=== PATIENT | male | born 1975 | race African-American/Black ===

== ENCOUNTER 2024-04-19 05:16 | Outpatient (CLI) | payer BC, SELFPAY ==
--- OUTSIDE RECORDS SUMMARY | 2024-04-20 03:31 | XMS_ITS | Continuity of Care Document ---
Author Name [facility] Organization [facility] Care Team Providers Care Online Services Manager Name Role Phone [facility] Unavailable Unavailable Problems Combined list of problems from Department of [place] and Veterans Affairs facilities. It does not include entries that were removed or entered in error. Problem Status Onset Date Problem Type Date of Resolution Comments Source Allergic rhinitis Active Condition [facility] Benign essential hypertension (SNOMED CT 6555521) Active Condition [facility] Benign prostatic hyperplasia Active Condition [facility] Carpal Tunnel Syndrome Active Condition [facility] Fitting and Adjustment of Orthopedic Devices Active Condition [facility] Hand pain (SNOMED CT 10140251) Active Condition [facility] Hyperlipidemia (SNOMED CT 28855151) Active Condition [facility] Paresthesia Active Condition [facility] no psychiatric diagnosis or condition on axis I Active Condition [facility] conditions influencing health status Active Condition DoD refractive error - myopia Active Condition DoD dermatophytosis nails Active Condition DoD dermatitis Active Condition DoD Macules And Papules Active Condition Do D obesity Active Condition DoD chronic sinusitis Active Condition DoD upper back pain Active Condition 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 Also recommend activity modifications, [...] Known Allergies Drug allergy (disorder) active 05/13/2008 [facility] [place] Immunizations Combined list of available immunizations from the Department of Defense and Veterans Affairs facilities. Immunization Series Date Given Administered By Site Reaction Lot Number CVX Code Drug Technical Program Manager Status Comments Source COVID-19 ([employer] MRNA, LNP-S, PF, 30 MCG/0.3 ML DOSE 3 2020 208 complet ed PFR; [id number]; 2 [facility] COVID-19 ([employer]), MRNA, LNP-S, PF, 30 MCG/0.3 ML DOSE 2 2020 208 complet ed [facility] COVID-19 (PFIZER), MRNA, LNP-S, PF, 30 MCG/0.3 ML DOSE 1 2020 208 complet ed [facility] TDAP 2010 115 complet ed [facility] influenza virus vaccine, live, attenuated, for intranasal use 1 2007 CANDACE ALLEN [id number] Other (OTH) complet ed influenza virus vaccine, live, attenuate d, for intranasa l use DoD influenza virus vaccine, live, attenuated, for intranasal use 1 2007 CANDACE ALLEN [id number] 111 Other (OTH) complet ed influenza virus vaccine, live, attenuate d, for intranasa l use DoD influenza virus vaccine, live, attenuated, for intranasal use 1 2006 [id number] 111 Unknown (UNK) comple t ed influenza [...] purified surface antigen)-reti red CODE 1 2005 [id number] Unknown (UNK) comple t ed influenza virus vaccine, split virus (incl. purified surface antigen)- retired CODE DoD hepatitis A and hepatitis B vaccine 2 2005 UNK 104 Unknown (UNK) comple t ed hepatitis A and hepatitis B vaccine DoD tuberculin skin test; purified protein derivative solution, intradermal 1 2005 Unknown, Provider [id number] Italo (PD) complet ed tuberculi n [...] ADM Date DC Date Status Disposition Source Counts include 234 beds at the [facility] Primary Care) OUTPATIENT [id number] ELIF Roland 01/24 Released w/o Limitations [facility] Primary Care) Counts include 234 beds at the [facility] Primary Care) OUTPATIENT [id number] OMA Reyes 01/31 Released w/o Limitations [facility] Primary Care) Counts include 234 beds at the [facility] Physical Therapy) OUTPATIENT [id number] SPEC$-F OR BACK DARLING SHI 07/18 Released with Work/Duty Limitations [facility] Phys[facility] l Therapy ) [facility] Physical Therapy) OUTPATIENT [id number] XAVI DUFF 07/20 Released with Work/Duty Limitations [facility] Physica [facility] Therapy ) [facility] Physical Therapy) OUTPATIENT [id number] XAVI DUFF 07/23 Released with Work/Duty Limitations [facility] Physica [facility] Therapy ) [facility] Physical Therapy) OUTPATIENT [id number] XAVI DUFF 07/24 Released with Work/Duty Limitations [facility] Physica l Therapy ) [facility] Physical Therapy) OUTPATIENT [id number] XAVI DUFF 07/25 Released with Work/Duty Limitations [facility] Physica l Therapy ) [facility] Primary Care[facility] OUTPATIENT [id number] walk-in LINA MARTEL 07/25 Released w/o Limitations [facility] Primary Care) [facility] Physical Therapy) OUTPATIENT [id number] DARLING WISDOM 11/09 Released with Work/Duty Limitations [facility] Physica l Therapy ) [facility](1AD FA BAS (MIRS)) OUTPATIENT [id number] back pain/HT N follow up SCOTT HUYNH 01/08 Released w/o Limitations [facility](D FA BAS (MIRS)) [facility] Physical Medicine) OUTPATIENT [id number] midback pain ANGELICA NUNEZ 01/28 Released w/o Limitations [facility](L Physica l Medicin e) [facility](D FA BAS (MIRS)) OUTPATIENT [id number] HTN SCOTT HUYNH 01/30 Released w/o Limitations [facility](D FA BAS (MIRS)) [facility] Physical Medicine) OUTPATIENT [id number] RIGHT THORACI C PARASPI NOUS PAIN WITH SPASMS ANGELICA NUNEZ 03/06 Released w/o Limitations [facility](L Physica l Medicin e) [facility] Physical Therapy) OUTPATIENT [id number] ACUT-BA DARLING SCHWARZ 03/25 Released with Work/Duty Limitations [facility] Physica l Therapy ) [facility] Physical Therapy) OUTPATIENT [id number] PROC MARIYA SHULTZ 04/02 Released w/o Limitations [facility] Physica l Therapy ) [facility] Primary Care) OUTPATIENT [id number] f/u from PT per CPT LINA Love 04/29 Released w/o Limitations [facility] Primary Care) [facility] Physical Medicine) OUTPATIENT [id number] F/U ANGELICA NUNEZ 05/20 Released w/o Limitations [facility](LSL Physica l Medicin e) [facility] Physical Medicine) OUTPATIENT [id number] BOTOX INJ ANGELICA NUNEZ 06/05 Released w/o Limitations [facility](LSL Physica l Medicin e) [facility](1AD FA BAS (MIRS)) OUTPATIENT [id number] BP SCOTT Coyne 06/19 Released w/o Limitations [facility](1AD FA BAS (MIRS)) [facility](L Cardiolog y) OUTPATIENT [id number] INOCENCIOT-LORELEI RIDLEY 07/04 Released w/o Limitations [facility](L Cardiol ogy) [facility] Primary Care) OUTPATIENT [id number] f/u back pain SHRADDHA PINON F 07/19 Released w/o Limitations [facility] Primary Care) [facility] Hearing Conservat ion) OUTPATIENT [id number] annual hearing test YARA MIRANDA 07/23 Released w/o Limitations [facility](R Hearing Conserv ation) [facility] R Physical Exam) OUTPATIENT [id number] Part 1 Exam YARA MIRANDA 07/23 Released w/o Limitations [facility](ZZZ BHR Physica l Exam) [facility] Optometry ) OUTPATIENT [id number] MEB Physica l CARLA URIOSTEGUI 07/23 Released w/o Limitations [facility] Optomet ry) [facility] Primary Care) OUTPATIENT [id number] SHRADDHA Pablo 08/05 Released w/o Limitations [facility] Primary Care) [facility] R Physical Exam) OUTPATIENT [id number] f/u on prev meb exam w/lab & cxr results YARA MIRANDA 08/22 Released w/o Limitations [facility](ZZZ BHR Physica l Exam) [facility] Physical Exam) TELE CONSULT [id number] called about MEB process FAWAD SHRESTHA 08/27 [facility](ZZZ LSL Physica l Exam) [facility] R Physical Exam) OUTPATIENT [id number] f/u on prev exam w/lab & cxr results YARA MIRANDA 09/11 Released w/o Limitations [facility](ZZZ BHR Physica l Exam) [facility] Physical Therapy) OUTPATIENT [id number] DIANE KO 09/16 Released w/o Limitations [facility] Physica l Therapy ) [facility] Psycholog y Service) OUTPATIENT [id number] Wt 2 Stay JUNAID HARVEY 09/16 Released w/o Limitations [facility] Psychol ogy Service ) [facility](L Nutrition Care) OUTPATIENT [id number] GERMAINE KERR 09/16 Released w/o Limitations [facility] Nutriti on Care) [facility] Wellness Center) OUTPATIENT [id number] Metabol ic Testing REI BOWSER 09/25 Released w/o Limitations [facility]) [facility] Physical Exam) TELE CONSULT [id number] chart reveiw FAWAD SHRESTHA 10/08 [facility](ZZZ LSL Physica l Exam) [facility] Physical Therapy) OUTPATIENT [id number] SPEC-RA NGE OF MOTION DARLING SHI 10/09 Released with Work/Duty Limitations [facility] Physica l Therapy ) [facility] Physical Exam) OUTPATIENT [id number] MATTIE OLIVA 10/28 Released with Work/Duty Limitations [facility](ZZZ LSL Physica l Exam) [facility] Urology) OUTPATIENT [id number] rt testicu lar pain; hx of torsion & orchipe xy; hydroce DORI Galicia 10/29 Released w/o Limitations [facility] Urology ) [facility] Physical Therapy) OUTPATIENT [id number] CHRONIC PAIN GAVI SARABIA 11/05 Released w/o Limitations [facility](L Physica l Therapy ) [facility] Physical Exam) TELE CONSULT [id number] Psych appt. schedul ed LISA VILLASEÑOR M 11/20 [facility](ZZZ LSL Physica l Exam) [facility] Primary Care) OUTPATIENT [id number] WTun Intake CARLA HART 12/03 Released w/o Limitations [facility] Primary Care) [facility] Primary Care) OUTPATIENT [id number] initial wtu RADHA CLINTON L 12/04 Released w/o Limitations [facility] Primary Care) [facility] Primary Care) OUTPATIENT [id number] [facility] RADHA L 12/17 Released w/o Limitations [facility] Primary Care) [facility] Primary Care) OUTPATIENT [id number] LORELEI HUSSEIN 12/19 Released with Work/Duty Limitations [facility] Primary Care) [facility] Primary Care) OUTPATIENT [id number] [facility] RADHA L 01/05 Released w/o Limitations [facility] Primary Care) [facility] Primary Care) OUTPATIENT [id number] [facility] 01/19 Released w/o Limitations [facility] Primary Care) [facility](L Neurosurg [place]) OUTPATIENT [id number] INTERVE RTEBRAL DISC DEGENER ATSCOTT KNAPP 01/28 Released w/o Limitations [facility](LSL Neurosu rgery) [facility] Primary Care) OUTPATIENT [id number] [facility] L 02/04 Released w/o Limitations [facility] Primary Care) [facility] Primary Care) OUTPATIENT [id number] [facility] L 02/17 Released w/o Limitations [facility] Primary Care) [facility] Primary Care) OUTPATIENT [id number] [facility] f/u [facility] L 03/02 Released w/o Limitations [facility] Primary Care) [facility] Primary Care) OUTPATIENT [id number] [facility] TEX IRWIN 03/16 Released w/o Limitations [facility] Primary Care) [facility] L Physical Exam) TELE CONSULT [id number] LISA VILLASEÑOR 03/23 [facility](ZZZ LSL Physica l Exam) [facility] Physical Therapy) OUTPATIENT [id number] CODY COREAS 03/30 Released w/o Limitations [facility](R Physica l Therapy ) [facility] Primary Care) OUTPATIENT [id number] wilson/RAHEL Joshi 04/03 Released w/o Limitations [facility] Primary Care) [facility] Physical Therapy) OUTPATIENT [id number] CODY COREAS 04/06 Released w/o Limitations [facility](R Physica l Therapy ) [facility] Rheumatol [facility]gy) OUTPATIENT [id number] myalgia s KATIUSKA PRATHER 04/07 Released w/o Limitations [facility](L Rheumat ology) [facility] Physical Therapy) OUTPATIENT [id number] CODY COREAS 04/08 Released w/o Limitations [facility](R Physica l Therapy ) [facility] Physical Medicine) OUTPATIENT [id number] follow up ANGELICA NUNEZ 04/15 Released w/o Limitations [facility](L Physica l Medicin e) [facility] Physical Therapy) OUTPATIENT [id number] CODY COREAS 04/16 Released w/o Limitations [facility](R Physica l Therapy ) [facility]) OUTPATIENT [id number] health assessm ent CODY COREAS 04/21 Released w/o Limitations [facility](R Physica l Therapy ) [facility] Therapy) OUTPATIENT [id number] CODY COREAS 04/24 Released w/o Limitations [facility] Physica l Therapy ) [facility] Physical Exam) OUTPATIENT [id number] RECEIVE COPY OF MELETY MYRICK 04/25 Released w/o Limitations [facility] LSL Physica l Exam) [facility](R Physical Therapy) OUTPATIENT [id number] SHILO MCGINNIS 04/27 Released with Work/Duty Limitations [facility](R Physica l Therapy ) [facility] Primary Care) TELE CONSULT [id number] needs follow up appoint CEDRIC Cohen 04/27 [facility] Primary Care) [facility] Primary Care) OUTPATIENT [id number] wtu/MELINA Arrieta 04/28 Released w/o Limitations [facility] Primary Care) [facility] Physical Medicine) OUTPATIENT [id number] acupunc ANGELICA Vargas 04/29 Released w/o Limitations [facility](L Physica l Medicin e) [facility] Physical Therapy) OUTPATIENT [id number] SHILO MCGINNIS 05/01 Released with Work/Duty Limitations [facility] Physica l Therapy ) [facility] Physical Therapy) OUTPATIENT [id number] SHILO MCGINNIS 05/04 Released with Work/Duty Limitations [facility] Physica l Therapy ) [facility] Physical Therapy) OUTPATIENT [id number] SHILO MCGINNIS 05/05 Released with Work/Duty Limitations [facility] Physica l Therapy ) [facility](L Neurology ) OUTPATIENT [id number] testing CARITO ANTONIO 05/07 Released w/o Limitations [facility] Neurolo gy) [facility] Physical Therapy) OUTPATIENT [id number] SHILO MCGINNIS 05/07 Released with Work/Duty Limitations [facility](R Physica l Therapy ) [facility](L Neurology ) OUTPATIENT [id number] SevereN europat hic MFPS/fr om baumhol citlalli CARITO ANTONIO 05/08 Released w/o Limitations [facility] Neurolo gy) [facility] Primary Care) OUTPATIENT [id number] wtu f/u RADHA CLINTON 05/13 Released w/o Limitations [facility] Primary Care) [facility] Primary Care) OUTPATIENT [id number] NCM VISIT HAILEY CARLA M 05/27 Released with Work/Duty Limitations [facility] Primary Care) [facility] Primary Care) OUTPATIENT [id number] wtu/fu MELINA VALERIO 06/05 Released w/o Limitations [facility] Primary Care) [facility] Primary Care) OUTPATIENT [id number] LORELEI Momin 06/05 Released w/o Limitations [facility] Primary Care) [facility](L Neurology ) OUTPATIENT [id number] FOLLOW UP SEB GARCIA 06/10 Released w/o Limitations [facility] Neurolo gy) [facility] Primary Care) OUTPATIENT [id number] WTU NCM HAILEY CARLA M 06/12 Released with Work/Duty Limitations [facility] Primary Care) [facility] Neurology ) OUTPATIENT [id number] CARITO ANTONIO 06/17 Released w/o Limitations [facility]SL Neurolo gy) [facility] Primary Care) OUTPATIENT [id number] wtu f/u MELINA VALERIO 06/22 Released w/o Limitations [facility] Primary Care) [facility] Physical Therapy) OUTPATIENT [id number] JOHANNA MACDONALD 06/22 Released w/o Limitations [facility](R Physica l Therapy ) [facility] Physical Exam) OUTPATIENT [id number] RIB Physica l MATTIE OLIVA 07/02 Released with Work/Duty Limitations [facility] Physica l Exam) [facility] Primary Care) OUTPATIENT [id number] weekly WTU CARLA HART 07/09 Released with Work/Duty Limitations [facility] Primary Care) [facility] Primary Care) OUTPATIENT [id number] wtu MELINA VALERIO 07/10 Released w/o Limitations [facility] Primary Care) [facility] Primary Care) OUTPATIENT [id number] wtMELINA Garay 07/24 Released w/o Limitations [facility] Primary Care) [facility](L Dermatolo gy) OUTPATIENT [id number] Macules And Papules [id number] WILNER BENJAMIN 07/30 Released w/o Limitations [facility](L Dermato logy) [facility] Physical Medicine) OUTPATIENT [id number] FOLLOW UP ANGELICA NUNEZ 08/07 Released w/o Limitations [facility](L Physica l Medicin e) [facility] Primary Care) OUTPATIENT [id number] wtu/RADHA Hernandez 08/26 Released w/o Limitations [facility] Primary Care) [facility] Hearing Conservat ion) OUTPATIENT [id number] annual hearing test YARA MIRANDA 09/01 Released w/o Limitations [facility] Hearing Conserv ation) [facility] Primary Care) OUTPATIENT [id number] WTU KENNY Benjamin 09/03 Released w/o Limitations [facility] Primary Care) [facility] Primary Care) OUTPATIENT [id number] NAI Becker 09/09 Released w/o Limitations [facility] Primary Care) [facility] Physical Therapy) OUTPATIENT [id number] ZIA HARDING 09/11 Released w/o Limitations [facility] Physica l Therapy ) [facility] Primary Care) OUTPATIENT [id number] wtu MELINA VALERIO 09/11 Released w/o Limitations [facility] Primary Care) [facility] Physical Therapy) OUTPATIENT [id number] ZIA HARDING 09/14 Released w/o Limitations [facility] Physica l Therapy ) [facility] Optometry ) OUTPATIENT [id number] eye exam SCOTT CLAIRE 09/21 Released w/o Limitations [facility] Optomet ry) [facility] Primary Care) OUTPATIENT [id number] wtu/MELINA Arrieta 09/25 Released w/o Limitations [facility] Primary Care) [facility] Primary Care) OUTPATIENT [id number] WTU Followu p ALFREDO, KENNY JADEN 09/25 Released w/o Limitations [facility] Primary Care) [facility] Primary Care) OUTPATIENT [id number] WTU Followu p KENNY FUENTES 09/28 Released w/o Limitations [facility] Primary Care) [facility] Primary Care) OUTPATIENT [id number] WTU Followu p KENNY FUENTES 10/06 Released w/o Limitations [facility] Primary Care) [facility] Primary Care) OUTPATIENT [id number] wtu/MELINA Arrieta 10/07 Released w/o Limitations [facility] Primary Care) [facility] Dermatolo gy) OUTPATIENT [id number] f/u fungus [id number] WILNER BENJAMIN 10/12 Released w/o Limitations [facility] Dermato logy) [facility] Primary Care) OUTPATIENT [id number] WTU Followu p KENNY FUENTES 10/15 Released w/o Limitations [facility] Primary Care) [facility] Primary Care) OUTPATIENT [id number] wtu/f/u MELINA VALERIO 10/21 Released w/o Limitations [facility] Primary Care) [facility] Primary Care) OUTPATIENT [id number] WTU Followu p KENNY FUENTES JADEN 10/21 Released w/o Limitations [facility] Primary Care) [facility] Nutrition Care) OUTPATIENT [id number] overwei ght/obe PEPPER Galicia 10/26 Released w/o Limitations [facility] Nutriti on Care) [facility] Primary Care) OUTPATIENT [id number] WTU Followu p KENNY FUENTES JADEN 11/05 Released w/o Limitations [facility] Primary Care) [facility] Primary Care) OUTPATIENT [id number] [facility] f/u PAULY BUSTILLOS ZEINAB 11/11 Released w/o Limitations [facility] Primary Care) [facility] Primary Care) OUTPATIENT [id number] [facility] MELINA VALERIO 11/13 Released w/o Limitations [facility] Primary Care) [facility] Primary Care) OUTPATIENT [id number] [facility] f/u PAULY BUSTILLOS ZEINAB 11/16 Released w/o Limitations [facility] Primary Care[facility] Primary Care) OUTPATIENT [id number] [facility] Followu p KENNY FUNETES JADEN 11/24 Released w/o Limitations [facility] Primary Care) [facility] OUTPATIENT [id number] 1 PT ROM XAVIER RUSH 11/25 Released w/o Limitations [facility] OUTPATIENT [id number] [facility] MITCHELL GIBSON 11/25 Released w/o Limitations [facility] Outpatient Encounter [id number] NEFTALI VANESSA 04/15 [facility]RLOS [facility] Outpatient Encounter [id number] 04/15 TRUPTI HWANG [facility] Procedures Combined list of: 1) Procedures from Department of Veterans Affairs facilities going back up to thelast 18 months, not all [place] non-surgical procedures are included; 2) All procedures from the Department of Defense facilities. Procedure Procedure Type Code Date Perfomer Comments Sourc e Clinical Social Work Individual Outpatient Counseling 30 Minutes Clinical Social Work Individual Outpatient Counseling 30 Minutes [id number] 2008 JENIFER PARIKH [facility] Range Of Motion Evaluation Of Extremity Range Of Motion Evaluation Of Extremity 46861 2008 XAVIER RUSH [facility] Coordinated care fee, maintenance rate 2008 KENNY FUENTES Coordinated care fee, maintenance rate 2008 PAULY BUSTILLOS [facility] Coordinated care fee, maintenance rate 2008 PAULY BUSTILLOS ZEINAB [facility] Coordinated care fee, maintenance rate 2008 KENNY FUENTES Medical Nutrition Therapy Group (2 or More Individuals) Each 30 Minutes Medical Nutrition Therapy Group (2 or More Individuals) Each 30 Minutes [address] [facility] Coordinated care fee, maintenance rate 2008 KENNY FUENTES Coordinated care fee, maintenance rate 2008 KENNY FUENTES Spectacles Services Fitting Monofocal Except For Aphakia Spectacles Services Fitting Monofocal Except For Aphakia 36107 2008 SCOTT CLAIRE Visual Larkin Test Limited Examination Visual Larkin Test Limited Examination 85717 2008 SCOTT CLAIRE Determination Of Refractive State Determination Of Refractive State 36717 2008 SCOTT CLAIRE Ophthalmological New Patient Start Comprehensive Care Ophthalmological New Patient Start Comprehensive Care 22053 2008 SCOTT CLAIRE Range Of Motion Evaluation Of Extremity Range Of Motion Evaluation Of Extremity 40476 2008 ZIA HARDING measured T-L spine and bilateral shoulders [facility] Range Of Motion Evaluation Of Extremity Range Of Motion Evaluation Of Extremity 21430 2008 ZIA HARDING [facility] Threshold Audiogram (Pure Tone) Threshold Audiogram (Pure Tone) 65714 2008 YARA MIRANDA [facility] Clinical Social Work Counseling Group Clinical Social Work Counseling Group 16932 2008 JENIFER PARIKH [facility] Skin Lesion DAIN Prep Skin Lesion DAIN Prep 05399 2007 WILNER BENJAMIN neg [facility] Toenail DAIN Prep Toenail DAIN Prep 83220 2007 WILNER BENJAMIN pos [facility] Physical Therapy Service Re-Evaluation Physical Therapy Service Re-Evaluation 96429 2007 JOHANNA MACDONALD [facility] Phys Therapy Education Self Care Training - Per 15 Minutes Phys Therapy Education Self Care Training - Per 15 Minutes 53889 2007 JOHANNA MACDONALD [facility] Psychometric Neuropsych Testing Battery Admin By Physician Psychometric Neuropsych Testing Battery Admin By Physician 45569 2007 CARITO ANTONIO [facility] Psychiatric Diagnostic Evaluation Review of Records and Reports Psychiatric Diagnostic Evaluation Review of Records and Reports 29100 2007 CARITO ANTONIO Psychometric Neuropsych Testing Battery Admin By Physician Psychometric Neuropsych Testing Battery Admin By Physician 65761 2007 CARITO ANTONIO [facility] Physical Medicine - Group Physical Therapy Se ion Physical Medicine - Group Physical Therapy Session 09551 2007 SHILO MCGINNIS Pnt is being discharged from aquatic therapy due to a fear of water that inhibits his ability to perform exercises in the water. [facility] Psychologic Testing And Report Administered By Physician Psychologic Testing And Report Administered By Physician 59486 2007 CARITO ANTONIO Psychometric Neuropsych Testing Battery Admin By Physician Psychometric Neuropsych Testing Battery Admin By Physician 63921 2007 CARITO ANTONIO [facility] Psychiatric Diagnostic Evaluation Comprehensive Examination Psychiatric Diagnostic Evaluation Comprehensive Examination 06348 2007 CARITO ANTONIO [facility] Physical Therapy: ___ Se ion Segments, 15 Minutes Each Physical Therapy: ___ Session Segments, 15 Minutes Each 61250 2007 SHILO MCGINNIS [facility] Modalities Heat Hot Packs Modalities Heat Hot Packs 00467 2007 SHILO MCGINNIS [facility] Physical Therapy: ___ Se ion Segments, 15 Minutes Each Physical Therapy: ___ Session Segments, 15 Minutes Each 18545 2007 SHILO MCGINNIS [facility] Modalities Heat Hot Packs Modalities Heat Hot Packs 16242 2007 SHILO MCGINNIS [facility] Physical Therapy: ___ Se ion Segments, 15 Minutes Each Physical Therapy: ___ Session Segments, 15 Minutes Each 92307 2007 SHILO MCGINNIS [facility] Modalities Heat Hot Packs Modalities Heat Hot Packs 32084 2007 SHILO MCGINNIS [facility] Injection Of Trigger Point(s) One Or Two Muscle Group(s) Injection Of Trigger Point(s) One Or Two Muscle Group(s) 77857 2007 ANGELICA NUNEZ Botox 300 units into The R rhomboids and trapezius/lev ator scapulae/sple nius cervicus. [facility] Physical Therapy: ___ Se ion Segments, 15 Minutes Each Physical Therapy: ___ Session Segments, 15 Minutes Each 90995 2007 SHILO MCGINNIS [facility] Modalities Heat Hot Packs Modalities Heat Hot Packs 52773 2007 SHILO MCGINNIS [facility] Modalities Heat Hot Packs Modalities Heat Hot Packs 60148 2007 CODY COREAS [facility] Physical Therapy: ___ Se ion Segments, 15 Minutes Each Physical Therapy: ___ Session Segments, 15 Minutes Each 03639 2007 CODY COREAS Ther ex x 35 mins [facility] Modalities Heat Hot Packs Modalities Heat Hot Packs 66465 2007 CODY COREAS [facility] Physical Therapy: ___ Se ion Segments, 15 Minutes Each Physical Therapy: ___ Session Segments, 15 Minutes Each 36905 2007 CODY COREAS therex x 25 mins [facility] Patient Training And Self-Care Skills Patient Training And Self-Care Skills 22621 2007 CODY COREAS [facility] Physical Therapy Service Re-Evaluation Physical Therapy Service Re-Evaluation 61920 2007 CODY COREAS [facility] Acupunct One Or More Wilson W/O Stimulation Initial 15 Min Acupunct One Or More Wilson W/O Stimulation Initial 15 Min 55073 2007 ANGELICA NUNEZ [facility] Acupunct One/More Wilson W/O Stim Each Addl 15 Min W/ Reinsert Needle(s) Acupunct One/More Wilson W/O Stim Each Addl 15 Min W/ Reinsert Needle(s) 36258 2007 ANGELICA NUNEZ Written consent was obtained [...] [Jim Field Acupuncture Points]: Cingulate Gyrus, Thalamic, Cheshire 2, Point Zero, and Patten Men were detected using the POINTER PLUS detector. These points were then stimulated using low current/frequ ency electrical signal for 30 seconds each. Then, small Gold ASP acupuncture needles were placed in the B Ears in these Jim Field acupuncture points. [facility] Physical Therapy Neuromuscular Re-education Physical Therapy Neuromuscular Re-education 49752 2007 CODY COREAS [facility] Physical Therapy: ___ Se ion Segments, 15 Minutes Each Physical Therapy: ___ Session Segments, 15 Minutes Each 06110 2007 CODY COREAS [facility] Physical Therapy Neuromuscular Re-education Physical Therapy Neuromuscular Re-education 03304 2007 CODY COREAS [facility] Physical Therapy: ___ Se ion Segments, 15 Minutes Each Physical Therapy: ___ Session Segments, 15 Minutes Each 57833 2007 CODY COREAS [facility] Physical Therapy Neuromuscular Re-education Physical Therapy Neuromuscular Re-education 42909 2007 CODY COREAS NMRx25 mins [facility] Physical Therapy: ___ Se ion Segments, 15 Minutes Each Physical Therapy: ___ Session Segments, 15 Minutes Each 05934 2007 CODY COREAS [facility] Physical Therapy Service Evaluation Physical Therapy Service Evaluation 44344 2007 CODY COREAS [facility] Health And Behav A e mt Each 15 Min Initial A e ment Health And Behav Assessmt Each 15 Min Initial Assessment 01957 2007 JENIFER PARIKH [facility] Psychiatric Diagnostic Evaluation Comprehensive Examination Psychiatric Diagnostic Evaluation Comprehensive Examination 93776 2007 DAVID BARRON [facility] Range Of Motion Evaluation Of Extremity Range Of Motion Evaluation Of Extremity 65924 2007 DARLING SHI [facility] Medical Nutrition Therapy Group (2 or More Individuals) Each 30 Minutes Medical Nutrition Therapy Group (2 or More Individuals) Each 30 Minutes 80602 2007 GERMAINE KERR [facility] Psychotherapy Group Interactive Psychotherapy Group Interactive 16401 2007 JUNAID HARVEY [facility] Physician Supervised Services Provision Of Educational Supplies Physician Supervised Services Provision Of Educational Supplies 29196 2007 DIANE KO Physician Supervised Group Educational Services 2007 DIANE KO Extensive Color Vision Testing Extensive Color Vision Testing 18331 2006 JUNAID VILLASENOR [facility] Visual Function Screening Visual Function Screening 34987 2006 JUNAID VILLASENOR [facility] Threshold Audiogram (Pure Tone) Threshold Audiogram (Pure Tone) 85420 2006 YARA MIRANDA [facility] Cardiac Stre Test With Physician Supervision, Interpretation, And Report Cardiac Stress Test With Physician Supervision, Interpretation, And Report 40501 2006 LORELEI MARSHALL [facility] Nerve Ablation Cervical Spine 2006 ANGELICA NUNEZ [facility] Injection Of Trigger Point(s) One Or Two Muscle Group(s) Injection Of Trigger Point(s) One Or Two Muscle Group(s) 98329 2006 ANGELICA NUNEZ 125 units BOTOX R rhomboid, 75 units R trap. [facility] Modalities Cryotherapy Cold Packs Modalities Cryotherapy Cold Packs 12120 2006 MARIYA SHULTZ [facility] Physical Therapy: ___ Se ion Segments, 15 Minutes Each Physical Therapy: ___ Session Segments, 15 Minutes Each 64804 2006 MARIYA SHULTZ [facility] A isted Exercises For ROM Assisted Exercises For ROM 55045 2006 DARLING SHI Mobilization Soft Ti ue Mobilization Sof t Tissue 72343 2006 DARLING SHI [facility] Physical Therapy Service Re-Evaluation Physical Therapy Service Re-Evaluation 54043 2006 DARLING SHI Injection Of Trigger Point(s) One Or Two Muscle Group(s) Injection Of Trigger Point(s) One Or Two Muscle Group(s) 73006 2006 ANGELICA NUNEZ BOTOX 150 units R rhomboids, 50 units R trapezius Maryann Osteopathic Manip Treatment (OMT) 1-2 Body Regions Involved Osteopathic Manip Treatment (OMT) 1-2 Body Regions Involved 50213 2006 ANGELICA NUNEZ [facility] Physical Therapy Service Re-Evaluation Physical Therapy Service Re-Evaluation 30051 2006 DARLING SHI [facility] Physical Therapy: ___ Se ion Segments, 15 Minutes Each Physical Therapy: ___ Session Segments, 15 Minutes Each 13602 2005 XAVI HARRINGTON [facility] Modalities Electrical Stimulation Modalities Electrical Stimulation 80122 2005 XAVI HARRINGTON [facility] Physical Therapy Mobilization Joint Physical Therapy Mobilization Joint 05431 2005 XAVI HARRINGTON [facility] Modalities Heat Hot Packs Modalities Heat Hot Packs 34172 2005 XAVI HARRINGTON [facility] Physical Therapy: ___ Se ion Segments, 15 Minutes Each Physical Therapy: ___ Session Segments, 15 Minutes Each 40781 2005 XAVI HARRINGTON [facility] Modalities Electrical Stimulation Modalities Electrical Stimulation 91709 2005 XAVI HARRINGTON [facility] Physical Therapy Mobilization Joint Physical Therapy Mobilization Joint 32945 2005 XVAI HARRINGTON [facility] Modalities Heat Hot Packs Modalities Heat Hot Packs 76471 2005 XAVI HARRINGTON [facility] Modalities Electrical Stimulation Modalities Electrical Stimulation 38505 2005 XAVI HARRINGTON [facility] Physical Therapy: ___ Se ion Segments, 15 Minutes Each Physical Therapy: ___ Session Segments, 15 Minutes Each 77043 2005 XAVI HARRINGTON [facility] Physical Therapy Mobilization Joint Physical Therapy Mobilization Joint 41976 2005 XAVI HARRINGTON [facility] Modalities Heat Hot Packs Modalities Heat Hot Packs 81008 2005 XAVI HARRINGTON [facility] Physical Therapy: ___ Se ion Segments, 15 Minutes Each Physical Therapy: ___ Session Segments, 15 Minutes Each 04231 2005 XAVI HARRINGTON [facility] Modalities Electrical Stimulation Modalities Electrical Stimulation 83922 2005 XAVI HARRINGTON [facility] Modalities Heat Hot Packs Modalities Heat Hot Packs 75219 2005 XAVI HARRINGTON [facility] Physical Therapy: ___ Se ion Segments, 15 Minutes Each Physical Therapy: ___ Session Segments, 15 Minutes Each 60161 2005 DARLING SHI [facility] Install Peripheral Transcutaneous Neurostimulator Install Peripheral Transcutaneous Neurostimulator 37429 2005 DARLING SHI [facility] Modalities Heat Hot Packs Modalities Heat Hot Packs 52025 2005 DARLING SHI [facility] Physical Therapy Mobilization Joint Physical Therapy Mobilization Joint 83387 2005 DARLING SHI [facility] Physical Therapy Service Evaluation Physical Therapy Service Evaluation 88522 2005 DARLING SHI [facility] Typhoid Vaccine Vi Capsular Polysaccharide, For Intramus Use Typhoid Vaccine Vi Capsular Polysaccharide, For Intramus Use 18321 2005 ELIF RINCON [facility] Immunization Administration By Injection, One Vaccine Immunization Administration By Injection, One Vaccine 48695 2005 ELIF RINCON [facility] Immunization Administration By Injection, Each Additional Vaccine 2005 ELIF RINCON Skin Test Anergy tuberculin Skin Test Anergy tuberculin 42765 2005 ELIF RINCON [facility] OPHTHALMOLOGICAL SERVICES: MEDICAL EXAMINATION AND EVALUATION WITH INITIATION OF DIAGNOSTIC AND TREATMENT PROGRAM; INTERMEDIATE, NEW PATIENT 2005 [facility] RANGE OF MOTION MEASUREMENTS AND REPORT (SEPARATE PROCEDURE); EACH EXTREMITY (EXCLUDING HAND) OR EACH TRUNK SECTION (SPINE) 2008 [facility] COORDINATED CARE FEE, MAINTENANCE RATE 2008 [facility] COORDINATED CARE FEE, MAINTENANCE RATE 2008 [facility] COORDINATED CARE FEE, MAINTENANCE RATE 2008 [facility] INDIVIDUAL PSYCHOTHERAPY, INSIGHT ORIENTED, BEHAVIOR MODIFYING AND/OR SUPPORTIVE, IN AN OFFICE OR OUTPATIENT FACILITY, APPROXIMATELY 20 TO 30 MINUTES QNOQ-ED-OEXF WITH THE PATIENT 2008 [facility] COORDINATED CARE FEE, MAINTENANCE RATE 2008 [facility] MEDICAL NUTRITION THERAPY; GROUP (2 OR MORE INDIVIDUAL(S)), EACH 30 MINUTES 2008 [facility] COORDINATED CARE FEE, MAINTENANCE RATE 2008 [facility] COORDINATED CARE FEE, MAINTENANCE RATE 2008 [facility] FITTING OF SPECTACLES, EXCEPT FOR APHAKIA; MONOFOCAL 2008 [facility] RANGE OF MOTION MEASUREMENTS AND REPORT (SEPARATE PROCEDURE); EACH EXTREMITY (EXCLUDING HAND) OR EACH TRUNK SECTION (SPINE) 2008 [facility] RANGE OF MOTION MEASUREMENTS AND REPORT (SEPARATE PROCEDURE); EACH EXTREMITY (EXCLUDING HAND) OR EACH TRUNK SECTION (SPINE) 2008 [facility] COORDINATED CARE FEE, MAINTENANCE RATE 2008 [facility] PURE TONE AUDIOMETRY (THRESHOLD); AIR ONLY 2008 [facility] INTERACTIVE GROUP PSYCHOTHERAPY 2007 [facility] TISSUE EXAMINATION BY DAIN SLIDE OF SAMPLES FROM SKIN, HAIR, OR NAILS FOR FUNGI OR ECTOPARASITE OVA OR MITES (EG, SCABIES) 2007 [facility] COORDINATED CARE FEE, MAINTENANCE RATE 2007 [facility] PHYSICAL THERAPY RE-EVALUATION 2007 [facility] NEUROPSYCHOLOG TST (EG,IVIS-REITAN NEUROPSYCHOLOG MADONNA,YANNA MEM SCALES & WISC CARD SORT TST),/HR OF PSYCHOLOGIST/PHYS TIME,BOTH [id number] ADMIN TST TO PAT & TIME INTERP TEST RES & PREP RPT 2007 [facility] NEUROPSYCHOLOG TST (EG,IVIS-REITAN NEUROPSYCHOLOG MADONNA,YANNA MEM SCALES & WISC CARD SORT TST),/HR OF PSYCHOLOGIST/PHYS TIME,BOTH [id number] ADMIN TST TO PAT & TIME INTERP TEST RES & PREP RPT 2007 [facility] THERAPEUTIC PROCEDURE(S), GROUP (2 OR MORE INDIVIDUALS) 2007 [facility] NEUROPSYCHOLOG TST (EG,IVIS-REITAN NEUROPSYCHOLOG MADONNA,YANNA MEM SCALES & WISC CARD SORT TST),/HR OF PSYCHOLOGIST/PHYS TIME,BOTH [id number] ADMIN TST TO PAT & TIME INTERP [...] ENDURANCE, RANGE OF MOTION AND FLEXIBILITY 2007 [facility] INJECTION(S); SINGLE OR MULTIPLE TRIGGER POINT(S), 1 OR 2 MUSCLE(S) 2007 [facility] THERAPEUTIC PROCEDURE, 1 OR MORE AREAS, EACH 15 MINUTES; THERAPEUTIC EXERCISES TO DEVELOP STRENGTH AND ENDURANCE, RANGE OF MOTION AND FLEXIBILITY 2007 [facility] APPLICATION OF A MODALITY TO 1 OR MORE AREAS; HOT OR COLD PACKS 2007 [facility] APPLICATION OF A MODALITY TO 1 OR MORE AREAS; HOT OR COLD PACKS 2007 [facility] SELF-CARE/HOME MANAGMENT TRAIN (EG,ACT OF DAILY LIVING (ADL) &COMPENSAT TRAIN,MEAL PREPARATION,SAFETY PROCS,AND INSTRUCT IN USE OF ASST TECHNOLOGY DEV/ADPT EQUIP) DIR ONE-ON-ONE CONT,EA MINUTES 2007 [facility] ACUPUNCTURE, 1/MORE NEEDLES; WO ELECTRICAL STIMULATION, EA ADDITIONAL 15 MINUTES, PERSONAL ONE-ON-ONE CONTACT W THE PATIENT, W RE-INSERTION, NEEDLE(S) (LIST SEPARATELY ADDITION CODE, 1 PROCEDURE) 2007 [facility] THERAPEUTIC PROCEDURE,1 OR MORE AREAS,EACH 15 MINUTES;NEUROMUSCULAR REEDUCATION OF MOVEMENT,BALANCE,COORDI NATION,KINESTHETIC SENSE,POSTURE,AND/OR PROPRIOCEPTION FOR SITTING AND/OR STANDING ACTIVITIES 2007 [facility] THERAPEUTIC PROCEDURE,1 OR MORE AREAS,EACH 15 MINUTES;NEUROMUSCULAR REEDUCATION OF MOVEMENT,BALANCE,COORDI NATION,KINESTHETIC SENSE,POSTURE,AND/OR PROPRIOCEPTION FOR SITTING AND/OR STANDING ACTIVITIES 2007 [facility] THERAPEUTIC PROCEDURE,1 OR MORE AREAS,EACH 15 MINUTES;NEUROMUSCULAR REEDUCATION OF MOVEMENT,BALANCE,COORDI NATION,KINESTHETIC SENSE,POSTURE,AND/OR PROPRIOCEPTION FOR SITTING AND/OR STANDING ACTIVITIES 2007 [facility] PSYCHIATRIC DIAGNOSTIC INTERVIEW EXAMINATION 2007 [facility] HEALTH&BEHAV ASSESSMENT (EG, HEALTH-FOC CLINICAL INTERVIEW, BEHAVIORAL OBSERVATIONS, PSYCHOPHYSICOLOGICAL MONITOR, HEALTH-ORIENT QUESTIONNAIRES), EA 15 MIN [id number] W THE PATIENT; INIT ASSESSMENT 2007 [facility] RANGE OF MOTION MEASUREMENTS AND REPORT (SEPARATE PROCEDURE); EACH EXTREMITY (EXCLUDING HAND) OR EACH TRUNK SECTION (SPINE) 2007 [facility] INTERACTIVE GROUP PSYCHOTHERAPY 2007 [facility] EDUCATIONAL SUPPLIES, SUCH BOOKS, TAPES, AND PAMPHLETS, FOR THE PATIENT'S EDUCATION AT COST TO PHYSICIAN OR OTHER QUALIFIED HEALTH [employer] PROFESSIONAL 2007 [facility] MEDICAL NUTRITION THERAPY; GROUP (2 OR MORE INDIVIDUAL(S)), EACH 30 MINUTES 2007 [facility] COLOR VISION EXAMINATION, EXTENDED, EG, ANOMALOSCOPE OR EQUIVALENT 2006 [facility] PURE TONE AUDIOMETRY (THRESHOLD); AIR ONLY 2006 [facility] CARDIOVASCULAR STRESS TEST USING MAXIMAL OR SUBMAXIMAL TREADMILL OR BICYCLE EXERCISE,CONTINUOUS ELECTROCARDIOGRAPHIC MONITORING,AND/OR PHARMACOLOGICAL STRESS;W SUPERVISION,INTERPRETAT ION AND REPORT 2006 [facility] INJECTION(S); SINGLE OR MULTIPLE TRIGGER POINT(S), 1 OR 2 MUSCLE(S) 2006 [facility] APPLICATION OF A MODALITY TO 1 OR MORE AREAS; HOT OR COLD PACKS 2006 [facility] THERAPEUTIC PROCEDURE, 1 OR MORE AREAS, EACH 15 MINUTES; THERAPEUTIC EXERCISES TO DEVELOP STRENGTH AND ENDURANCE, RANGE OF MOTION AND FLEXIBILITY 2006 [facility] INJECTION(S); SINGLE OR MULTIPLE TRIGGER POINT(S), 1 OR 2 MUSCLE(S) 2006 [facility] DETERMINATION OF REFRACTIVE STATE 2006 [facility] OSTEOPATHIC MANIPULATIVE TREATMENT (OMT); 1-2 BODY REGIONS INVOLVED 2006 [facility] PHYSICAL THERAPY RE-EVALUATION 2006 [facility] DETERMINATION OF REFRACTIVE STATE 2006 [facility] APPLICATION OF A MODALITY TO 1 OR MORE AREAS; ELECTRICAL STIMULATION (MANUAL), EACH 15 MINUTES 2005 [facility] THERAPEUTIC PROCEDURE, 1 OR MORE AREAS, EACH 15 MINUTES; THERAPEUTIC EXERCISES TO DEVELOP STRENGTH AND ENDURANCE, RANGE OF MOTION AND FLEXIBILITY 2005 [facility] APPLICATION OF A MODALITY TO 1 OR MORE AREAS; HOT OR COLD PACKS 2005 [facility] THERAPEUTIC PROCEDURE, 1 OR MORE AREAS, EACH 15 MINUTES; THERAPEUTIC EXERCISES TO DEVELOP STRENGTH AND ENDURANCE, RANGE OF MOTION AND FLEXIBILITY 2005 [facility] APPLICATION OF SURFACE (TRANSCUTANEOUS) NEUROSTIMULATOR (EG, TENS UNIT) 2005 [facility] TYPHOID VACCINE, CAPSULAR POLYSACCHARIDE (VICPS), FOR INTRAMUSCULAR USE 2005 [facility] Social History Combined list of available smoking, tobacco, and other social history from Department of Defense and Veterans Affairs facilities. Social History Type Response Date Comment [facility] e Tobacco smoking status [facility] VA-TOBACCO NEVER USED 04/16/20 [facility] History of tobacco use VA-TOBACCO NEVER USED 12/11/2018 [facility] History of tobacco use LIFETIME NON-SMOKER 11/27/2012 [facility] History of tobacco use LIFETIME NON-SMOKER 10/11/2011 [facility] History of tobacco use LIFETIME NON-SMOKER 11/07/2010 [facility] History of tobacco use LIFETIME NON-SMOKER 08/01/2002 [facility] This section is an empty social history section. [facility]
--- OUTSIDE RECORDS SUMMARY | 2024-04-20 03:31 | XMS_ITS | Clinical Summary ---
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 Also recommend activity modifications, [...] Name Administration Dates Next Due COVID-19 vaccine ([employer] 30mcg/0.3mL) PF, MDV 08/09/2021,11/18/2020,10/28/2020 HepA-HepB (Twinrix) [...] adequate candidate for conscious sedation. The endoscope [id number] was passed through the anus andadvanced to [...] 9:45 AM Procedure Code(s): --- Professional --- 75631, Colonoscopy, flexible; diagnostic, including collection of specimen(s) bybrushing or washing, when performed (separateprocedure) Diagnosis Code(s): --- Professional --- Z12.11, Encounter for screening formalignant neoplasm of colon CPT copyright 2021 [employer]. All rights reserved. The codes documented in this report are preliminary and upon dishwashing machine repairer reviewmay be revised to meet current compliance requirements. Scope In: 10:27:09 AM Scope Withdrawal Time 0 hours 7 minutes 41 seconds Scope Out: 10:43:17 AM Chase Richardson MD PROCEDURE ORD from Last 3 Months or Most Recently Relevant to Health Maintenance Care Teams Assembling Motor Builder Relationship Specialty Start Date End Date Pcp, No . PCP - General 01/17/22
== END 2024-04-19 05:17 | disposition home or self-care (01) ==
LOC: AMB 04-20 03:29
PROVIDERS: Visit Provider Family Medicine
DX: R07.0 Pain in throat (principal)
CPT/HCPCS: A0425; A0427

== ENCOUNTER 2024-04-19 05:43 | Emergency (ER) | payer BC, SELFPAY ==
[2024-04-19 05:49] VITALS: BP 168/82; PULSE 84; RESP 18; TEMP 36.8; O2SAT 97; O2SAT 99; BMI 34.2
--- NOTE | 2024-04-19 06:46 | ED_ITS ---
HPI - General Adult General Chief complaint: Unspecified Complaint, Adult Stated complaint: high blood pressure Time Seen by Provider: 04/19/24 06:20 Source: patient Mode of arrival: EMS History of Present Illness HPI narrative: 48-year-old male presents the emergency department reporting shortness of breath and throat irritation. This has been going on for a few weeks, worsening over the last couple of days. Patient states that he needs testing and documentation that the air quality in his home is poor. He reports that his neighbors have been using vaping device is and that is compromising the air quality in his home, causing his symptoms. No fever, no productive cough. Patient reports that he is a nonsmoker. He did call EMS for these concerns this morning. He denies a history of asthma or chronic lung disease. No injury or trauma. No myalgias or flu-like symptoms. He denies cardiac symptoms, exertional symptoms or radiating chest pain. He says he feels like ?my lungs are on fire?. He has not addressed is issues with the primary care provider. [facility]. He has not tried any [id number] treatments to help with his symptoms. EMS reported that there was a very strong smell of cat urine and ammonia throughout the patient's home. He states that he does not have any long-term health problems, takes no long- term medications, has no medication allergies. ROS is notable for the breathing issues as stated above. Any time attempt to ask questions regarding other systems, he circles back to herminio reynaga regarding the air quality in his home and his neighbors use of inhalational products stating that I am ?not understanding him?. Related Data Previous Rx's ?Medication ?Instructions ?Recorded albuterol sulfate 90 mcg/actuation 2 inh inhalation QID PRN shortness 04/19/24 aerosol inhaler of breath or wheezing #8.5 grams Allergies Allergy/AdvReac Type Severity Reaction Status Date / Time No Known Drug Allergies Allergy Verified 04/19/24 05:51 Exam Const: Vital Signs, click to edit/add: Vital Signs - 24 hr 04/19/24 05:49 Temperature 98.2 F Pulse Rate [Right Pulse Oximeter] 84 Respiratory Rate 18 Blood Pressure [Ri ght Upper Arm] 168/82 H Pulse Oximetry 99 Oxygen Delivery Me thod Room Air Documenting provider has reviewed patient's vital signs: yes Other: Irritable, circumstantial thinking, somewhat illogical. HENMT: Common normals: normocephalic Head and scalp: normocephalic Face and sinus: normal facial exam Mouth: oral and palatal mucosa normal Throat: posterior oropharynx normal Eye: Common normals: conjunctivae normal General eye: normal appearance of both eyes Conjunctiva: conjunctiva(e) normal Neck & C-Spine: Common normals: full ROM and no lymphadenopathy Resp: Common normals: normal respiratory effort, no use of accessory muscles and clear to auscultation bilaterally Effort & inspection: able to speak in complete sentences Auscultation: clear to auscultation bilaterally Cardio: Common normals: regular rate, regular rhythm, S1 normal heart sound, S2 normal heart sound and no murmurs Rate: regular rate Rhythm: regular rhythm Heart sounds: S1 normal and S2 normal Back & Pelvis: Common normals: thoracic and lumbar spine normal to inspection Extremity: Common normals: normal to inspection and no pedal edema Psych: Attitude: guarded Activity/motor behavior: appropriate eye contact Thought process: circumstantial Thought content: rumination(s) Insight: limited Judgement: limited Skin: Common normals: no rashes or lesions noted General skin exam: no rashes or lesions noted Course Course ED Course: Counseled patient on his reassuring exam, respiratory rate and oxygen levels by both myself, the triage nursing team and EMS. I counseled patient that I do not have the ability in an emergency department to test for any potential damage to his lungs from secondhand irritants from his neighbor. I am not detecting any emergent health condition today and therefore cannot reference that there was a health condition caused by those agents. I do not recommend a chest x-ray, as the risk of the radiation would greatly outweigh any potential benefit when his oxygen levels, exam and respiratory rate are normal. I had recommended that we look at other potential causes for his symptoms such as performing an EKG, doing viral testing for COVID and a strep test for his throat irritation. He declines these today stating that I am not understanding him and then goes on along tangent about boot [employer] and how this is like repeating his social security number. I offered a trial of albuterol to see if this would help his symptoms because even though he is not exhibiting wheezing right now, I am concerned that he may have been having bat when he called 911 and we were just not able to catch it. I did start to discussed my rationale when he redirected the conversation back around to the apartment again. I did encourage him to follow up with his landlord regarding policies within the building. He tells me that he will not be trying the inhaler but I encouraged him to do so. I also recommended that he follow up with primary care provider in about a week as a check in to see how the inhaler is going and to perform office based spirometry if the inhaler is not successful. Counseled that we do not have the ability to do that in the emergency department as we are looking for emergent breathing conditions rather than low-grade chronic things and thankfully we are not able to detect any emergent condition. Written instructions outlining this were provided. Additional testing was declined. I am unable to provide him wi th a letter referencing any potential injury from secondhand vape exposure. Even though I do have some concerns about this patient's mental health, he does not seem as though he is an imminent immediate threat to himself or any others. Will allow him to discharge back to his home. Vital Signs Vital signs: Initial Vital Signs Temperature 98.2 F 04/19/24 05:49 Temperature Source Temporal Artery Scan 04/19/24 05:49 Pulse Rate 84 04/19/24 05:49 Respiratory Rate 18 04/19/24 05:49 Blood Pressure 168/82 H 04/19/24 05:49 Blood Pressure Mean 110 H 04/19/24 05:49 Blood Pressure Position Sitting 04/19/24 05:49 Pulse Oximetry 99 04/19/24 05:49 Oxygen Delivery Method Room Air 04/19/24 05:49 Vital Signs Temperature 98.2 F 04/19/24 05:49 Pulse Rate 84 04/19/24 05:49 Respiratory Rate 18 04/19/24 05:49 Blood Pressure 168/82 H 04/19/24 05:49 Pulse Oximetry 99 04/19/24 05:49 Oxygen Delivery Method Room Air 04/19/24 05:49 Temperature 98.2 F 04/19/24 05:49 Pulse Rate 84 04/19/24 05:49 Respiratory Rate 18 04/19/24 05:49 Blood Pressure 168/82 H 04/19/24 05:49 Pulse Oximetry 99 04/19/24 05:49 Oxygen Delivery Method Room Air 04/19/24 05:49 Discharge Plan Discharge Clinical Impression: Throat irritation Patient Disposition: Home, Self-Care Condition: Stable Instructions: How Your Lungs Work (ED) Additional Instructions: As we discussed, there are no signs of wheezing, crackles or rhonchi in your lungs today. I do hear some raspiness in your voice which could be due to irritation. I offered EKG, testing for COVID, strep and other viruses and you declined those stating that you were very aware that the cause of your irritation is inhalational irritants from your next door neighbors. I informed you that we do not have any type of testing that can verify that your symptoms are connected to those potential irritants. These are not things that could be measured in the blood, seen on x-ray or through other testing. We did functional testing on your lungs by measuring your oxygen levels, respiratory rate and listening to your lungs. The same exam was obtained by myself and the EMS teams. Just because I do not hear any wheezing now does not mean that you are not potentially having exposure and were symptoms when you are at home. Because of this, I am recommending a trial of an albuterol inhaler. Use 2 puffs up to every 4 hours as needed if you are feeling the chest tightness and difficulty breathing. I would like for you to make a follow-up appointment in 1 weeks time with your primary care team to discuss if this is helping or additional testing like office based spirometry. Spirometry is a test only done in the office, not the emergency department that tests the capacity of your lungs. In the emergency department, we are task with dealing with emergent lung conditions. Thankfully, you are not experiencing any of those today. I do recommend that you continue speaking with her landlord about potential hazards within your building. I cannot give any written documentation that any potential irritant could be ca using your symptoms today as there is no way to prove this. The EMS team did have concerns of a potential strong urine cat smell in your home which certainly could be causing irritation as well. I have sent the prescription for the inhaler to your pharmacy. I do generally hope that this helps you. Activity Level: No Restrictions Discharge Diet: Regular Prescriptions: New albuterol sulfate 90 mcg/actuation HFA aerosol inhaler 2 inh inhalation QID PRN (Reason: shortness of breath or wheezing) Qty: 8.5 2RF Stand Alone Forms: MyHealth Info Instructions
--- OUTSIDE RECORDS SUMMARY | 2024-04-19 06:51 | XMS_ITS | Clinical Summary ---
Author Organization [facility] Address [place], [place] [address] Care Team Providers Care Chief Of Safety And Protection Name Role Phone Pcp, No Primary Care Provider Unavailabl e Allergies No known active allergies Medications Medication Sig Dispensed Refills Start Date End Date Status cetirizine (ZYRTEC) 10 mg tabletIndications:Se asonal allergies Take 1 Tablet (10 mg) by mouth once daily. 30 Tablet 05/08/2022 Active diphenhydrAMINE (BENADRYL) 25 mg capsuleIndications:S easonal allergies Take 1 Capsule (25 mg) by mouth every 4 hours. 30 Capsule 05/08/2022 Active Active Problems Problem Noted Date Diagnosed Date Benign prostatic hyperplasia 01/24/2022 Carpal tunnel syndrome 01/24/2022 Chronic pain 01/24/2022 Chronic sinusitis 01/24/2022 Arthralgia of shoulder 01/24/2022 Allergic rhinitis 01/24/2022 Paresthesia 01/24/2022 Pain in thoracic spine 01/24/2022 Cervicalgia 01/24/2022 Onychomycosis due to dermatophyte 01/24/2022 Obesity 01/24/2022 Myopia 01/24/2022 Muscle pain 01/24/2022 Overview: No focal neuro deficits. The predominant pain generator is Myofascial is etiology involving primarily the right paracervicals, splenius capitis, trapezius and rhomboids. This is a very severe and chronic case which may take several weeks to months of appropriate treatments and compliance w/ physical limitations to achieve adequate results. I performed Manual Medicine Therapies (MMT) including Acupressure and Muscle Energy Therapy (MET) with immediate gain in Passive ROM and pain reduction. These MMT techniques were instructed for home use. His Physical Therapist(s) also need to assist the patient w/ the MMT to ensure that the patient is performing them correctly and progressing in the right direction. GOOD RESPONSE TO BOTOX TPI. Repeat today. Continue to avoid/minimize high-axial loading, high-impact activities and other aggravating factors including full gear, pushups, situps, flutter kicks, running [use elliptical curriculum coordinator instead] . Also recommend activity modifications, work ergonomics improvement to minimize recurrence. If the patient develops progressive weakness or other focal neuro deficits, would recommend immediate RTC for re-evaluation. 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 discussed options: observation, aspiration or surgical excision. pt desires observation at this time. Dysthymia 01/24/2022 Degeneration of intervertebral disc of thoracic region 01/24/2022 Health examination of defined subpopulation 02/2022 Immunizations Name Administration Dates Next Due COVID-19 vaccine ([employer] NTech 30mcg/0.3mL) PF, MDV 08/09/2021,11/18/2020,10/28/2020 HepA-HepB (Twinrix) 03/12/2006,10/12/2005 Hepatitis A (Adult) 09/25/2006 Hepatitis B (Adult) 08/03/2006 Inactivated Polio Vaccine 10/12/2005 Meningococcal Vaccine (Menomune) 10/12/2005 Td (Age >=7 Years) 10/12/2005 Tdap 03/08/2011 Typhoid (injectable) 01/24/2006 Social History Tobacco Use Types Packs/Day Years Used Date Smoking Tobacco: Never Smokeless Tobacco: Never Tobacco Cessation:Counseling Given: Yes Alcohol Use Standard Drinks/Week Comments Yes 0 (1 standard drink = 0.6 oz pur e alcohol) ocaasional wine use Social Connections Answer Date Recorded Frequency of Communication with Friends and Fami ly Not on file 02/17/2023 Financial Resource Strain Answer Date R ecorded Difficulty of Paying Living Expenses 3 02/13/2022 Difficulty of Paying Living Expenses Not on file 02/13/2022 Food Insecurity Answer Date Recorded Worried About Running Out of Food in the Last Ye ar 1 02/13/2022 Transportation Needs Answer Date Record ed Lack of Transportation (Medical) 2 02/13/2022 Housing Stability Answer Date Recorded Unable to Pay for Housing in the Last Year 1 02/13/2022 Sex and Gender Information Value Date Recorded Sex Assigned at Not on file Gender Identity Not on file Sexual Orientation Not on file Obstetrics History Last Filed Vital Signs Vital Sign Reading Time Taken Comments Blood Pressure 124/75 02/13/2023 11:08 AM CDT Pulse 53 02/13/2023 11:08 AM CDT Temperature 36.5 ??C (97.7 ??F) 05/08/2022 9:02 AM CD T Respiratory Rate 16 02/13/2023 11:0 8 AM CDT Oxygen Saturation 97% 02/13/2023 11: 08 AM CDT Inhaled Oxygen Concentration - - Weight 117.4 kg (258 lb 12.8 oz) 05/08/2022 9:02 AM CDT Height 181.5 cm (5' 11.46) 01/24/2022 10:58 AM CDT Body Mass Index 35.64 01/24/2022 10:58 AM CDT Plan of Treatment Health Maintenance Due Date Last Done Comments Depression screening for age 12+ 1985 HIV for age 15-65 1988 Hepatitis C screening for ag e 18-79 1991 Lipids for age 45-75 2018 Tetanus booster 03/08/2021 03/08/2011, 10/12/2005 BMI (ht and wt on same day) for age 18+ 01/24/2023 01/24/2022 COVID-19 vaccine series (2022- season) 2023 08/09/2021, 11/18/2020, 10/28/2020 Zoster (shingles) series for age 50+ (1 of 2) 2023 Influenza for age 50-64 04/20/2024 Colonoscopy through age 75 02/13/203302/13, 02/13/2023, 07/25/2022 Tdap Completed 03/08/2011 Pneumococcal series for age 6-64 Aged Out No longer eligible b ased on patient's age to complete this topic Procedures Procedure Name Priority Date/Time Associated Diagnosis Comments COLONOSCOPY 02/13/2023 9:45 AM CDT from Last 3 Months or Most Recently Relevant to Health Maintenance Results * COLONOSCOPY (02/13/2023 9:45 AM CDT) 02/13/2023 9:45 AM CDT Narrative Transcriptions Chase Richardson MD - 02/13/2023 10:53 AM CDT Patient Name: Rober Dillon Procedure Date: 02/13/2023 Gender: Male Date of : 1975 Admit Type: Outpatient Procedure: Colonoscopy Proceduralist: Chase Richardson MD , Rosemarie Mancilla (Nurse), Nany Joyner (Nurse) Indications/Pre-Op Diagnosis: Screening for colorectal malignant neoplasm, This is the patient's first colonoscopy Medications: Fentanyl 100 micrograms IV, Midazolam 3 mgIV, The level of sedation administered wasmoderate Procedure Description: The patient had risks, benefits and alternatives explained to andgave informed consent. The patient had a stable cardiopulmonary status and judged an adequate candidate for conscious sedation. The endoscope [id number] was passed through the anus andadvanced to the cecum, identified by appendiceal orifice and ileocecal valve.The colonoscopy was performed without difficulty. The patient toleratedthe procedure well. The quality of the bowel preparation was good. Anatomical landmarks were photographed. Complications: No immediate complications. Estimated Blood Loss & Specimen: Estimated blood loss: none. Specimen collected - None Findings: The perianal and digital rectal examinations were normal. The entire examined colon appeared normal. Impressions/Post-Op Diagnosis: - The entire examined colon is normal. - No specimens collected. Recommendation: - Patient has a contact number available for emergencies. The signsand symptoms of potential delayed complications were discussed with the patient. Return to normal activities tomorrow. Written discharge instructions were provided to the patient. - Resume previous diet. - Continue present medications. - Repeat colonoscopy in 10 years for screening purposes. Moderate Sedation: A time out was performed before the procedure. Moderate (conscious) sedation was administered by the endoscopy nurse and supervised bythe endoscopist. The following parameters were monitored: oxygensaturation, heart rate, blood pressure, EKG, CO2, respiratory rate, adequacy of pulmonary ventilation and reponse to care. Please refer to the patient's medical record flowsheets and nursing notes for moderate sedation details. Total physician intraservice time was 18 minutes. Chase Richardson MD 02/13/2023 10:52:45 AM This report has been signed electronically. Note Initiated On: 02/13/2023 9:45 AM Procedure Code(s): --- Professional --- 35257, Colonoscopy, flexible; diagnostic, including collection of specimen(s) bybrushing or washing, when performed (separateprocedure) Diagnosis Code(s): --- Professional --- Z12.11, Encounter for screening formalignant neoplasm of colon CPT copyright 2021 [employer]. All rights reserved. The codes documented in this report are preliminary and upon track supervisor reviewmay be revised to meet current compliance requirements. Scope In: 10:27:09 AM Scope Withdrawal Time 0 hours 7 minutes 41 seconds Scope Out: 10:43:17 AM Chase Richardson MD PROCEDURE ORD from Last 3 Months or Most Recently Relevant to Health Maintenance Care Teams Chief Of Safety And Protection Relationship Specialty Start Date End Date Pcp, No . PCP - General 01/17/22
--- OUTSIDE RECORDS SUMMARY | 2024-04-19 06:51 | XMS_ITS | Continuity of Care Document ---
Author Name [facility] Organization [facility] Care Team Providers Care Integration Aide Name Role Phone [facility] Unavailable Unavailable Problems Combined list of problems from Department of [facility] and Veterans Affairs facilities. It does not include entries that were removed or entered in error. Problem Status Onset Date Problem Type Date of Resolution Comments Source Allergic rhinitis Active Condition [facility] Benign essential hypertension (SNOMED CT 3465749) Active Condition [facility] Benign prostatic hyperplasia Active Condition [facility] Carpal Tunnel Syndrome Active Condition [facility] Fitting and Adjustment of Orthopedic Devices Active Condition [facility] Hand pain (SNOMED CT 58656020) Active Condition [facility] Hyperlipidemia (SNOMED CT 81748572) Active Condition [facility] Paresthesia Active Condition [facility] no psychiatric diagnosis or condition on axis I Active Condition [facility] conditions influencing health status Active Condition DoD refractive error - myopia Active Condition DoD dermatophytosis nails Active Condition DoD dermatitis Active Condition DoD Macules And Papules Active Condition Do D obesity Active Condition DoD chronic sinusitis Active Condition DoD upper back pain Active Condition DoD dysthymic disorder (depressive neurosis) Active Condition [facility] visit for: services physical Active Condition DoD dermatophytosis tinea cruris Active Condition 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 DoD Patient Education Inactive Condition DoD cervicalgia Active Condition DoD hypertension systemic Active Condition 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 discussed options: observation, aspiration or surgical excision. pt desires observation at this time. DoD chronic pain Active Condition DoD Patient Counseling: Active Condition Test results explained and patient verbalized understanding. Advised to keep food diary and be cconsistant with exercise routine. 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 The predominant pain [...] direction. GOOD RESPONSE TO BOTOX TPI. Repeat today.Continue to avoid/minimize high-axial loading, high-impact activities and other aggravating factors including full gear, pushups, situps, flutter kicks, running [use elliptical physical trainer instead] . Also recommend activity modifications, work ergonomics improvement to minimize recurrence.If the patient develops progressive weakness or other focal neuro deficits, would recommend immediate RTC for re-evaluation. DoD essential hypertension Active Condition DoD muscle spasm Inactive Condition DoD backache Active Condition DoD midback pain Active Condition DoD Other Physical Therapy Active Condition DoD Blood Pressure Isolated Elevated Inactive Condition 5 days BP check. DoD contact dermatitis due to plants [place] Active Condition F/U in a week DoD visit for: screening exam pulmonary tuberculosis Inactive Condition DoD Need For Vaccination Typhoid Inactive Condition DoD Allergies, Adverse Reactions, Alerts Combined list of allergies from Department of Defense and Veterans Affairs facilities. It does not include entries that were removed or entered in error. Substance Category Reaction Severity Reaction type Status Date Reported Comments Source No Known Allergies Drug allergy (disorder) active 05/13/2008 [facility] [place] Immunizations Combined list of available immunizations from the Department of Defense and Veterans Affairs facilities. Immunization Series Date Given Administered By Site Reaction Lot Number CVX Code Drug Squeak Rattle And Leak Repairer Status Comments Source COVID-19 (36Kr), MRNA, LNP-S, PF, 30 MCG/0.3 ML DOSE 3 2020 208 complet ed PFR; [id number]; 2 [facility] COVID-19 (PFIZER), MRNA, LNP-S, PF, 30 MCG/0.3 ML DOSE 2 2020 208 complet ed [facility] COVID-19 (PFIZER), MRNA, LNP-S, PF, 30 MCG/0.3 ML DOSE 1 2020 208 complet ed [facility] TDAP 2010 115 complet ed [facility] influenza virus vaccine, live, attenuated, for intranasal use 1 2007 CANDACE ALLEN [id number] 111 Other (OTH) complet ed influenza virus vaccine, live, attenuate d, for intranasa l use DoD influenza virus vaccine, live, attenuated, for intranasal use 1 2007 CANDACE ALLEN [id number] 111 Other (OTH) complet ed influenza virus vaccine, live, attenuate d, for intranasa l use DoD influenza virus vaccine, live, attenuated, for intranasal use 1 2006 [id number] 111 Unknown (UNK) comple t ed influenza virus vaccine, live, attenuate d, for intranasa l use DoD hepatitis A vaccine, adult dosage 3 2006 UNK 52 Unknown (UNK) comple t ed hepatitis A vaccine, adult dosage DoD hepatitis B vaccine, adult dosage 3 2005 UNK 43 Unknown (UNK) comple t ed hepatitis B vaccine, adult dosage DoD influenza virus vaccine, split virus (incl. purified surface antigen)-reti red CODE 1 2005 [id number] Unknown (UNK) comple t ed influenza virus vaccine, split virus (incl. purified surface antigen)- retired CODE DoD hepatitis A and hepatitis B vaccine 2 2005 UNK 104 Unknown (UNK) comple t ed hepatitis A and hepatitis B vaccine DoD tuberculin skin test; purified protein derivative solution, intradermal 1 2005 Unknown, Provider [id number] Italo (PD) complet ed tuberculi n skin test; purified protein derivativ e solution, intraderm al DoD typhoid Vi capsular polysaccharid e vaccine 1 2005 Unknown, Provider [id number] Sanofi Pasteur (PMC) complet ed typhoid Vi capsular polysacch aride vaccine DoD measles, mumps and rubella virus vaccine 1 2005 UNK 03 Unknown (UNK) comple t ed measles, mumps and rubella virus vaccine DoD tetanus and diphtheria toxoids, adsorbed, preservative free, for adult use (2 Lf of tetanus toxoid and 2 Lf of diphtheria toxoid) 1 2005 UNK 09 Unknown (UNK) comple t ed tetanus and diphtheri a toxoids, adsorbed, preservat nasreen free, for adult use (2 Lf of tetanus toxoid and 2 Lf of diphtheri a toxoid) DoD poliovirus vaccine, inactivated 1 2005 UNK 10 Unknown (UNK) comple t ed polioviru s vaccine, inactivat ed DoD influenza virus vaccine, split virus (incl. purified surface antigen)-reti red CODE 1 2005 UNK 15 Unknown (UNK) comple t ed influenza virus vaccine, split virus (incl. purified surface antigen)- retired CODE DoD meningococcal polysaccharid e vaccine (MPSV4) 1 2005 UNK 32 Unknown (UNK) comple t ed meningoco ccal polysacch aride vaccine (MPSV4) DoD hepatitis A and hepatitis B vaccine 1 2005 UNK 104 Unknown (UNK) comple t ed hepatitis A and hepatitis B vaccine DoD Encounters Combined list of: 1) Encounters from Department of Veterans Affairs facilities going back up to thelast 18 months. 2) Encounters from the Department of Defense facilities going back up to 280 months. Location Location Details Encounter Type Encounter Number Reason For Visit Attending Provider ADM Date DC Date Status Disposition Source [facility] Primary Care) OUTPATIENT [id number] LEIF Roland 01/24 Released w/o Limitations [facility]) [facility] Primary Care) OUTPATIENT [id number] OMA Reyes 01/31 Released w/o Limitations [facility] Primary Care[facility] Physical Therapy) OUTPATIENT [id number] SPEC$-F OR BACK DARLING SHI 07/18 Released with Work/Duty Limitations [facility] Phys[facility] Therapy ) [facility] Physical Therapy) OUTPATIENT [id number] XAVI DUFF 07/20 Released with Work/Duty Limitations [facility] ) [facility] Physical Therapy) OUTPATIENT [id number] XAVI DUFF 07/23 Released with Work/Duty Limitations [facility] Phys[facility] Therapy ) [facility] Physical Therapy) OUTPATIENT [id number] XAVI DUFF 07/24 Released with Work/Duty Limitations [facility] Physica [facility] Therapy ) [facility] Physical Therapy) OUTPATIENT [id number] XAVI DUFF 07/25 Released with Work/Duty Limitations [facility] Physica l Therapy ) [facility] Primary Care) OUTPATIENT [id number] walk-in LINA MARTEL 07/25 Released w/o Limitations [facility] Primary Care) [facility] Physical Therapy) OUTPATIENT [id number] DARLING WISDOM 11/09 Released with Work/Duty Limitations [facility] Physica l Therapy ) [facility](1AD FA BAS (MIRS)) OUTPATIENT [id number] back pain/HT N follow up SCOTT HUYNH 01/08 Released w/o Limitations [facility](D FA BAS (MIRS)) [facility] Physical Medicine) OUTPATIENT [id number] midback pain ANGELICA NUNEZ 01/28 Released w/o Limitations [facility](L Physica l Medicin e) [facility](D FA BAS (MIRS)) OUTPATIENT [id number] HTN SCOTT HUYNH 01/30 Released w/o Limitations [facility](D FA BAS (MIRS)) [facility] Physical Medicine) OUTPATIENT [id number] RIGHT THORACI C PARASPI NOUS PAIN WITH SPASMS ANGELICA NUNEZ 03/06 Released w/o Limitations [facility](L Physica l Medicin e) [facility] Physical Therapy) OUTPATIENT [id number] ACUT-BA DARLING SCHWARZ 03/25 Released with Work/Duty Limitations [facility] Physica [facility] Therapy ) [facility] Physical Therapy) OUTPATIENT [id number] PROC MARIYA SHULTZ 04/02 Released w/o Limitations [facility] Physica l Therapy ) [facility] Primary Care[facility] OUTPATIENT [id number] f/u from PT per CPT LINA Love 04/29 Released w/o Limitations [facility] Primary Care) [facility](L Physical Medicine) OUTPATIENT [id number] F/U ANGELICA NUNEZ 05/20 Released w/o Limitations [facility](LSL Physica l Medicin e) [facility] Physical Medicine) OUTPATIENT [id number] BOTOX INJ ANGELICA NUNEZ 06/05 Released w/o Limitations [facility](LSL Physica l Medicin e) [facility](1AD FA BAS (MIRS)) OUTPATIENT [id number] BP SCOTT Coyne 06/19 Released w/o Limitations [facility](1AD FA BAS (MIRS)) [facility](L Cardiolog y) OUTPATIENT [id number] INOCENCIOT-LORELEI RIDLEY 07/04 Released w/o Limitations [facility](L Cardiol ogy) [facility] Primary Care) OUTPATIENT [id number] f/u back pain SHRADDHA PINON F 07/19 Released w/o Limitations [facility] Primary Care) [facility] Hearing Conservat ion) OUTPATIENT [id number] annual hearing test YARA MIRANDA 07/23 Released w/o Limitations [facility](R Hearing Conserv ation) [facility] R Physical Exam) OUTPATIENT [id number] Part 1 Exam YARA MIRANDA 07/23 Released w/o Limitations [facility](ZZZ BHR Physica l Exam) [facility](R Optometry ) OUTPATIENT [id number] MEB Physica l CARLA URIOSTEGUI 07/23 Released w/o Limitations [facility] Optomet ry) [facility] Primary Care[facility] OUTPATIENT [id number] SHRADDHA Pablo 08/05 Released w/o Limitations [facility] Primary Care) [facility] R Physical Exam) OUTPATIENT [id number] f/u on prev meb exam w/lab & cxr results YARA MIRANDA 08/22 Released w/o Limitations [facility](ZZZ BHR Physica l Exam) [facility](ZZZLS L Physical Exam) TELE CONSULT [id number] called about MEB process FAWAD SHRESTHA 08/27 [facility](ZZZ LSL Physica l Exam) [facility] R Physical Exam) OUTPATIENT [id number] f/u on prev exam w/lab & cxr results YARA MIRANDA 09/11 Released w/o Limitations [facility](ZZZ BHR Physica l Exam) [facility](LSL Physical Therapy) OUTPATIENT [id number] DIANE KO 09/16 Released w/o Limitations [facility](LSL Physica l Therapy ) [facility]SL Psycholog y Service) OUTPATIENT [id number] Wt 2 Stay JUNAID HARVEY 09/16 Released w/o Limitations [facility](LSL Psychol ogy Service ) [facility](L Nutrition Care) OUTPATIENT [id number] GERMAINE KERR 09/16 Released w/o Limitations [facility] Nutriti on Care) [facility] Wellness Center) OUTPATIENT [id number] Metabol ic Testing REI BOWSER 09/25 Released w/o Limitations [facility]) [facility] L Physical Exam) TELE CONSULT [id number] chart reveiw FAWAD SHRESTHA 10/08 [facility](ZZZ LSL Physica l Exam) [facility] Physical Therapy) OUTPATIENT [id number] SPEC-RA NGE OF MOTION DARLING SHI 10/09 Released with Work/Duty Limitations [facility] Physica l Therapy ) [facility] Physical Exam) OUTPATIENT [id number] MATTIE OLIVA 10/28 Released with Work/Duty Limitations [facility](ZZZ LSL Physica l Exam) [facility] Urology) OUTPATIENT [id number] rt testicu lar pain; hx of torsion & orchipe xy; hydroce DORI Galicia 10/29 Released w/o Limitations [facility] Urology ) [facility] Physical Therapy) OUTPATIENT [id number] CHRONIC PAIN GAVI SARABIA 11/05 Released w/o Limitations [facility](L Physica l Therapy ) [facility] L Physical Exam) TELE CONSULT [id number] Psych appt. schedul ed LISA VILLASEÑOR M 11/20 [facility](ZZZ LSL Physica l Exam) [facility] Primary Care[facility] OUTPATIENT [id number] WTun Intake CARLA HART 12/03 Released w/o Limitations [facility] Primary Care) [facility] Primary Care) OUTPATIENT [id number] initial wtu RADHA CLINTON L 12/04 Released w/o Limitations [facility] Primary Care) [facility] Primary Care) OUTPATIENT [id number] [facility] RADHA L 12/17 Released w/o Limitations [facility] Primary Care) [facility] Primary Care[facility] OUTPATIENT [id number] LORELEI HUSSEIN 12/19 Released with Work/Duty Limitations [facility] Primary Care) [facility] Primary Care) OUTPATIENT [id number] [facility] RADHA L 01/05 Released w/o Limitations [facility] Primary Care) [facility] Primary Care) OUTPATIENT [id number] [facility] 01/19 Released w/o Limitations [facility] Primary Care) [facility](L Neurosurg [place]) OUTPATIENT [id number] INTERVE RTEBRAL DISC DEGENER ATSCOTT KNAPP 01/28 Released w/o Limitations [facility](LSL Neurosu rgery) [facility] Primary Care) OUTPATIENT [id number] [facility] L 02/04 Released w/o Limitations [facility] Primary Care) [facility] Primary Care) OUTPATIENT [id number] [facility] L 02/17 Released w/o Limitations [facility] Primary Care) [facility] Primary Care) OUTPATIENT [id number] [facility] f/u [facility] L 03/02 Released w/o Limitations [facility] Primary Care) [facility] Primary Care) OUTPATIENT [id number] [facility] TEX IRWIN 03/16 Released w/o Limitations [facility] Primary Care) [facility](ZZZLS L Physical Exam) TELE CONSULT [id number] LISA VILLASEÑOR 03/23 [facility](ZZZ LSL Physica l Exam) [facility] Physical Therapy) OUTPATIENT [id number] CODY COREAS 03/30 Released w/o Limitations [facility](R Physica l Therapy ) [facility] Primary Care) OUTPATIENT [id number] wilson/RAHEL Joshi 04/03 Released w/o Limitations [facility] Primary Care) [facility] Physical Therapy) OUTPATIENT [id number] CODY COREAS 04/06 Released w/o Limitations [facility](R Physica l Therapy ) [facility] Rheumatol [facility]gy) OUTPATIENT [id number] myalgia s KATIUSKA PRATHER 04/07 Released w/o Limitations [facility](L Rheumat ology) [facility] Physical Therapy) OUTPATIENT [id number] CODY COREAS 04/08 Released w/o Limitations [facility](R Physica l Therapy ) [facility] Physical Medicine) OUTPATIENT [id number] follow up ANGELICA NUNEZ 04/15 Released w/o Limitations [facility](L Physica l Medicin e) [facility] Physical Therapy) OUTPATIENT [id number] CODY COREAS 04/16 Released w/o Limitations [facility] Physica [facility] Therapy ) [facility]) OUTPATIENT [id number] health assessm ent CODY COREAS 04/21 Released w/o Limitations [facility] Physica [facility] Therapy ) [facility]) OUTPATIENT [id number] CODY COREAS 04/24 Released w/o Limitations [facility] Physica [facility] Therapy ) [facility] Physical Exam) OUTPATIENT [id number] RECEIVE COPY OF MELETY MYRICK 04/25 Released w/o Limitations [facility](ZZZ LSL Physica l Exam) [facility] Physical Therapy) OUTPATIENT [id number] SHILO MCGINNIS 04/27 Released with Work/Duty Limitations [facility] Physica l Therapy ) [facility] Primary Care) TELE CONSULT [id number] needs follow up appoint CEDRIC Cohen 04/27 [facility] Primary Care) [facility] Primary Care[facility] OUTPATIENT [id number] wtu/MELINA Arrieta 04/28 Released w/o Limitations [facility] Primary Care) [facility] Physical Medicine) OUTPATIENT [id number] acupunc ANGELICA Vargas 04/29 Released w/o Limitations [facility](L Physica l Medicin e) [facility] Physical Therapy) OUTPATIENT [id number] SHILO MCGINNIS 05/01 Released with Work/Duty Limitations [facility] Physica l Therapy ) [facility] Physical Therapy) OUTPATIENT [id number] SHILO MCGINNIS 05/04 Released with Work/Duty Limitations [facility] Physica l Therapy ) [facility] Physical Therapy) OUTPATIENT [id number] SHILO MCGINNIS 05/05 Released with Work/Duty Limitations [facility] Physica l Therapy ) [facility](L Neurology ) OUTPATIENT [id number] testing CARITO ANTONIO 05/07 Released w/o Limitations [facility](LSL Neurolo gy) [facility] Physical Therapy) OUTPATIENT [id number] SHILO MCGINNIS 05/07 Released with Work/Duty Limitations [facility](R Physica l Therapy ) [facility](L Neurology ) OUTPATIENT [id number] SevereN europat hic MFPS/fr om baumhol citlalli CARITO ANTONIO 05/08 Released w/o Limitations [facility](LSL Neurolo gy) [facility] Primary Care) OUTPATIENT [id number] wtu f/u RADHA CLINTON 05/13 Released w/o Limitations [facility] Primary Care) [facility] Primary Care) OUTPATIENT [id number] NCM VISIT HAILEY CARLA M 05/27 Released with Work/Duty Limitations [facility] Primary Care) [facility] Primary Care) OUTPATIENT [id number] wtu/fu MELINA VAELRIO 06/05 Released w/o Limitations [facility] Primary Care) [facility] Primary Care) OUTPATIENT [id number] LORELEI Momin 06/05 Released w/o Limitations [facility] Primary Care) [facility](L Neurology ) OUTPATIENT [id number] FOLLOW UP SEB GARCIA 06/10 Released w/o Limitations [facility](LSL Neurolo gy) [facility] Primary Care) OUTPATIENT [id number] WTU NCM HAILEY CARLA M 06/12 Released with Work/Duty Limitations [facility] Primary Care) [facility](L[facility] Neurology ) OUTPATIENT [id number] CARITO ANTONIO 06/17 Released w/o Limitations [facility](LSL Neurolo gy) [facility] Primary Care) OUTPATIENT [id number] wtu f/u MELINA VALERIO 06/22 Released w/o Limitations [facility] Primary Care) [facility] Physical Therapy) OUTPATIENT [id number] JOHANNA MACDONALD 06/22 Released w/o Limitations [facility](R Physica l Therapy ) [facility] Physical Exam) OUTPATIENT [id number] COB Physica l MATTIE OLIVA 07/02 Released with Work/Duty Limitations [facility](ZZ[facility] LSL Physica l Exam) [facility] Primary Care) OUTPATIENT [id number] weekly WTU CARLA HART 07/09 Released with Work/Duty Limitations [facility] Primary Care) [facility] Primary Care) OUTPATIENT [id number] wtu MELINA VALERIO 07/10 Released w/o Limitations [facility] Primary Care) [facility] Primary Care) OUTPATIENT [id number] wtMELINA Garay 07/24 Released w/o Limitations [facility] Primary Care) [facility](L Dermatolo gy) OUTPATIENT [id number] Macules And Papules [id number] WILNER BENJAMIN 07/30 Released w/o Limitations [facility] Dermato logy) [facility] Physical Medicine) OUTPATIENT [id number] FOLLOW UP ANGELICA NUNEZ 08/07 Released w/o Limitations [facility](L Physica l Medicin e) [facility] Primary Care) OUTPATIENT [id number] wtu/RADHA Hernandez 08/26 Released w/o Limitations [facility] Primary Care) [facility] Hearing Conservat ion) OUTPATIENT [id number] annual hearing test YARA MIRANDA 09/01 Released w/o Limitations [facility] Hearing Conserv ation) [facility] Primary Care) OUTPATIENT [id number] WTU KENNY Benjamin 09/03 Released w/o Limitations [facility] Primary Care) [facility] Primary Care) OUTPATIENT [id number] NAI Becker 09/09 Released w/o Limitations [facility] Primary Care) [facility] Physical Therapy) OUTPATIENT [id number] ZIA HARDING 09/11 Released w/o Limitations [facility] Physica l Therapy ) [facility] Primary Care) OUTPATIENT [id number] wtu MELINA VALERIO 09/11 Released w/o Limitations [facility] Primary Care) [facility] Physical Therapy) OUTPATIENT [id number] ZIA HARDING 09/14 Released w/o Limitations [facility] Physica l Therapy ) [facility] Optometry ) OUTPATIENT [id number] eye exam SCOTT CLAIRE 09/21 Released w/o Limitations [facility] Optomet ry) [facility] Primary Care) OUTPATIENT [id number] wtu/MELINA Arrieta 09/25 Released w/o Limitations [facility] Primary Care) [facility] Primary Care) OUTPATIENT [id number] WTU Followu p ALFREDO, KENNY JADEN 09/25 Released w/o Limitations [facility] Primary Care) [facility] Primary Care) OUTPATIENT [id number] WTU Followu p KENNY FUENTES 09/28 Released w/o Limitations [facility] Primary Care) [facility] Primary Care) OUTPATIENT [id number] WTU Followu p KENNY FUENTES 10/06 Released w/o Limitations [facility] Primary Care) [facility] Primary Care) OUTPATIENT [id number] wtu/MELINA Arrieta 10/07 Released w/o Limitations [facility] Primary Care) [facility] Dermatolo [facility]) OUTPATIENT [id number] f/u fungus [id number] WILNER BENJAMIN 10/12 Released w/o Limitations [facility] Dermato log[facility]) [facility] Primary Care) OUTPATIENT [id number] WTU Followu p KENNY FUENTES 10/15 Released w/o Limitations [facility] Primary Care) [facility] Primary Care) OUTPATIENT [id number] wtu/f/u MELINA VALERIO 10/21 Released w/o Limitations [facility] Primary Care) [facility] Primary Care) OUTPATIENT [id number] WTU Followu p KENNY FUENTES JADEN 10/21 Released w/o Limitations [facility] Primary Care) [facility] Nutrition Care) OUTPATIENT [id number] overwei ght/obe PEPPER Galicia 10/26 Released w/o Limitations [facility] Nutriti on Care) [facility] Primary Care) OUTPATIENT [id number] WTU Followu p KENNY FUENTES JADEN 11/05 Released w/o Limitations [facility] Primary Care) [facility] Primary Care) OUTPATIENT [id number] WTU f/u PAULY BUSTILLOS ZEINAB 11/11 Released w/o Limitations [facility] Primary Care) [facility] Primary Care) OUTPATIENT [id number] wtu MELINA VALERIO 11/13 Released w/o Limitations [facility] Primary Care) [facility] Primary Care) OUTPATIENT [id number] WTU f/u PAULY BUSTILLOS ZEINAB 11/16 Released w/o Limitations [facility] Primary Care) [facility] Primary Care) OUTPATIENT [id number] WTU Followu p KENNY FUENTES JADEN 11/24 Released w/o Limitations [facility] Primary Care) [facility] Physical [facility] OUTPATIENT [id number] 1 PT ROM XAVIER RUSH 11/25 Released w/o Limitations [facility] Phys[facility]) [facility] Physical [facility]) OUTPATIENT [id number] 4 [facility] PH[facility] MITCHELL GIBSON 11/25 Released w/o Limitations [facility] Physica [facility]am) [facility] Outpatient Encounter [id number] NEFTALI VANESSA 04[facility] Outpatient Encounter [id number] 04/15 TRUPTI HWANG [facility] Procedures Combined list of: 1) Procedures from Department of Veterans Affairs facilities going back up to thelast 18 months, not all [place] non-surgical procedures are included; 2) All procedures from the Department of Defense facilities. Procedure Procedure Type Code Date Perfomer Comments Sourc e Clinical Social Work Individual Outpatient Counseling 30 Minutes Clinical Social Work Individual Outpatient Counseling 30 Minutes 50230 2008 JENIFER PARIKH [facility] Range Of Motion Evaluation Of Extremity Range Of Motion Evaluation Of Extremity 62605 2008 XAVIER RUSH [facility] Coordinated care fee, maintenance rate 2008 KENNY FUENTES Coordinated care fee, maintenance rate 2008 PAULY BUSTILLOS [facility] Coordinated care fee, maintenance rate 2008 PAULY BUSTILLOS ZEINAB [facility] Coordinated care fee, maintenance rate 2008 KENNY FUENTES Medical Nutrition Therapy Group (2 or More Individuals) Each 30 Minutes Medical Nutrition Therapy Group (2 or More Individuals) Each [address] [facility] Coordinated care fee, maintenance rate 2008 KENNY FUENTES Coordinated care fee, maintenance rate 2008 KENNY FUENTES Spectacles Services Fitting Monofocal Except For Aphakia Spectacles Services Fitting Monofocal Except For Aphakia 68299 2008 SCOTT CLAIRE Visual Larkin Test Limited Examination Visual Larkin Test Limited Examination 74940 2008 SCOTT CLAIRE Determination Of Refractive State Determination Of Refractive State 36254 2008 SCOTT CLAIRE Ophthalmological New Patient Start Comprehensive Care Ophthalmological New Patient Start Comprehensive Care 44950 2008 SCOTT CLAIRE Range Of Motion Evaluation Of Extremity Range Of Motion Evaluation Of Extremity 30262 2008 ZIA HARDING measured T-L spine and bilateral shoulders [facility] Range Of Motion Evaluation Of Extremity Range Of Motion Evaluation Of Extremity 52053 2008 ZIA HARDING [facility] Threshold Audiogram (Pure Tone) Threshold Audiogram (Pure Tone) 01851 2008 YARA MIRANDA [facility] Clinical Social Work Counseling Group Clinical Social Work Counseling Group 48045 2008 JENIFER PARIKH [facility] Skin Lesion DAIN Prep Skin Lesion DAIN Prep 98912 2007 WILNER BENJAMIN neg [facility] Toenail DAIN Prep Toenail DAIN Prep 33470 2007 WILNER BENJAMIN pos [facility] Physical Therapy Service Re-Evaluation Physical Therapy Service Re-Evaluation 36344 2007 JOHANNA MACDONALD [facility] Phys Therapy Education Self Care Training - Per 15 Minutes Phys Therapy Education Self Care Training - Per 15 Minutes 61438 2007 JOHANNA MACDONALD [facility] Psychometric Neuropsych Testing Battery Admin By Physician Psychometric Neuropsych Testing Battery Admin By Physician 47906 2007 CARITO ANTONIO [facility] Psychiatric Diagnostic Evaluation Review of Records and Reports Psychiatric Diagnostic Evaluation Review of Records and Reports 55366 2007 CARITO ANTONIO Psychometric Neuropsych Testing Battery Admin By Physician Psychometric Neuropsych Testing Battery Admin By Physician 19852 2007 CARITO ANTONIO [facility] Physical Medicine - Group Physical Therapy Se ion Physical Medicine - Group Physical Therapy Session 73555 2007 SHILO MCGINNIS Pnt is being discharged from aquatic therapy due to a fear of water that inhibits his ability to perform exercises in the water. [facility] Psychologic Testing And Report Administered By Physician Psychologic Testing And Report Administered By Physician 34437 2007 CARITO ANTONIO Psychometric Neuropsych Testing Battery Admin By Physician Psychometric Neuropsych Testing Battery Admin By Physician 89992 2007 CARITO ANTONIO [facility] Psychiatric Diagnostic Evaluation Comprehensive Examination Psychiatric Diagnostic Evaluation Comprehensive Examination 02919 2007 CARITO ANTONIO [facility] Physical Therapy: ___ Se ion Segments, 15 Minutes Each Physical Therapy: ___ Session Segments, 15 Minutes Each 01833 2007 SHILO MCGINNIS [facility] Modalities Heat Hot Packs Modalities Heat Hot Packs 19700 2007 SHILO MCGINNIS [facility] Physical Therapy: ___ Se ion Segments, 15 Minutes Each Physical Therapy: ___ Session Segments, 15 Minutes Each 63855 2007 SHILO MCGINNIS [facility] Modalities Heat Hot Packs Modalities Heat Hot Packs 17062 2007 SHILO MCGINNIS [facility] Physical Therapy: ___ Se ion Segments, 15 Minutes Each Physical Therapy: ___ Session Segments, 15 Minutes Each 81668 2007 SHILO MCGINNIS [facility] Modalities Heat Hot Packs Modalities Heat Hot Packs 25706 2007 SHILO MCGINNIS [facility] Injection Of Trigger Point(s) One Or Two Muscle Group(s) Injection Of Trigger Point(s) One Or Two Muscle Group(s) 98972 2007 ANGELICA NUNEZ Botox 300 units into The R rhomboids and trapezius/lev ator scapulae/sple nius cervicus. [facility] Physical Therapy: ___ Se ion Segments, 15 Minutes Each Physical Therapy: ___ Session Segments, 15 Minutes Each 04009 2007 SHILO MCGINNIS [facility] Modalities Heat Hot Packs Modalities Heat Hot Packs 96646 2007 SHILO MCGINNIS [facility] Modalities Heat Hot Packs Modalities Heat Hot Packs 39110 2007 CODY COREAS [facility] Physical Therapy: ___ Se ion Segments, 15 Minutes Each Physical Therapy: ___ Session Segments, 15 Minutes Each 60161 2007 CODY COREAS Ther ex x 35 mins [facility] Modalities Heat Hot Packs Modalities Heat Hot Packs 02766 2007 CODY COREAS [facility] Physical Therapy: ___ Se ion Segments, 15 Minutes Each Physical Therapy: ___ Session Segments, 15 Minutes Each 51512 2007 CODY COREAS therex x 25 mins [facility] Patient Training And Self-Care Skills Patient Training And Self-Care Skills 91893 2007 CODY COREAS [facility] Physical Therapy Service Re-Evaluation Physical Therapy Service Re-Evaluation 57891 2007 CODY COREAS [facility] Acupunct One Or More [place] W/O Stimulation Initial 15 Min Acupunct One Or More [place] W/O Stimulation Initial 15 Min 44417 2007 ANGELICA NUNEZ [facility] Acupunct One/More [place] W/O Stim Each Addl 15 Min W/ Reinsert Needle(s) Acupunct One/More [place] W/O Stim Each Addl 15 Min W/ Reinsert Needle(s) 11765 2007 ANGELICA NUNEZ Written consent was obtained after the procedure, its risks and intended benefits were explained to the patient. Then, prior to the detection and stimulation of pertinent acupuncture points and subsequent insertion of acupuncture needles time out was taken to verify correct patient: full name and date of , site of pain. Relevant acupuncture points [Jim Field Acupuncture Points]: Cingulate Gyrus, Thalamic, Lohn 2, Point Zero, and Patten Men were detected using the POINTER PLUS detector. These points were then stimulated using low current/frequ ency electrical signal for 30 seconds each. Then, small Gold ASP acupuncture needles were placed in the B Ears in these Jim Field acupuncture points. [facility] Physical Therapy Neuromuscular Re-education Physical Therapy Neuromuscular Re-education 16041 2007 CODY COREAS [facility] Physical Therapy: ___ Se ion Segments, 15 Minutes Each Physical Therapy: ___ Session Segments, 15 Minutes Each 63224 2007 CODY COREAS [facility] Physical Therapy Neuromuscular Re-education Physical Therapy Neuromuscular Re-education 28575 2007 CODY COREAS [facility] Physical Therapy: ___ Se ion Segments, 15 Minutes Each Physical Therapy: ___ Session Segments, 15 Minutes Each 75819 2007 CODY COREAS [facility] Physical Therapy Neuromuscular Re-education Physical Therapy Neuromuscular Re-education 50369 2007 CODY COREAS NMRx25 mins [facility] Physical Therapy: ___ Se ion Segments, 15 Minutes Each Physical Therapy: ___ Session Segments, 15 Minutes Each 53519 2007 CODY COREAS [facility] Physical Therapy Service Evaluation Physical Therapy Service Evaluation 68601 2007 CODY COREAS [facility] Health And Behav A e mt Each 15 Min Initial A e ment Health And Behav Assessmt Each 15 Min Initial Assessment 12122 2007 JENIFER PARIKH [facility] Psychiatric Diagnostic Evaluation Comprehensive Examination Psychiatric Diagnostic Evaluation Comprehensive Examination 24888 2007 DAVID BARRON [facility] Range Of Motion Evaluation Of Extremity Range Of Motion Evaluation Of Extremity 33669 2007 DARLING SHI [facility] Medical Nutrition Therapy Group (2 or More Individuals) Each 30 Minutes Medical Nutrition Therapy Group (2 or More Individuals) Each 30 Minutes 72442 2007 GERMAINE KERR [facility] Psychotherapy Group Interactive Psychotherapy Group Interactive 89238 2007 JUNAID HARVEY [facility] Physician Supervised Services Provision Of Educational Supplies Physician Supervised Services Provision Of Educational Supplies 66594 2007 DIANE KO Physician Supervised Group Educational Services 2007 DIANE KO Extensive Color Vision Testing Extensive Color Vision Testing 05618 2006 JUNAID VILLASENOR [facility] Visual Function Screening Visual Function Screening 34032 2006 JUNAID VILLASENOR [facility] Threshold Audiogram (Pure Tone) Threshold Audiogram (Pure Tone) 61063 2006 YARA MIRANDA [facility] Cardiac Stre Test With Physician Supervision, Interpretation, And Report Cardiac Stress Test With Physician Supervision, Interpretation, And Report 74482 2006 LORELEI MARSHALL [facility] Nerve Ablation Cervical Spine 2006 ANGELICA NUNEZ [facility] Injection Of Trigger Point(s) One Or Two Muscle Group(s) Injection Of Trigger Point(s) One Or Two Muscle Group(s) 24103 2006 ANGELICA NUNEZ 125 units BOTOX R rhomboid, 75 units R trap. [facility] Modalities Cryotherapy Cold Packs Modalities Cryotherapy Cold Packs 26155 2006 MARIYA SHULTZ [facility] Physical Therapy: ___ Se ion Segments, 15 Minutes Each Physical Therapy: ___ Session Segments, 15 Minutes Each 17557 2006 MARIYA SHULTZ [facility] A isted Exercises For ROM Assisted Exercises For ROM 29373 2006 DARLING SHI Mobilization Soft Ti ue Mobilization Sof t Tissue 22927 2006 DARLING SHI [facility] Physical Therapy Service Re-Evaluation Physical Therapy Service Re-Evaluation 80071 2006 DARLING SHI Injection Of Trigger Point(s) One Or Two Muscle Group(s) Injection Of Trigger Point(s) One Or Two Muscle Group(s) 19094 2006 ANGELICA NUNEZ BOTOX 150 units R rhomboids, 50 units R trapezius Maryann Osteopathic Manip Treatment (OMT) 1-2 Body Regions Involved Osteopathic Manip Treatment (OMT) 1-2 Body Regions Involved 90376 2006 ANGELICA NUNEZ [facility] Physical Therapy Service Re-Evaluation Physical Therapy Service Re-Evaluation 01663 2006 DARLING SHI [facility] Physical Therapy: ___ Se ion Segments, 15 Minutes Each Physical Therapy: ___ Session Segments, 15 Minutes Each 00317 2005 XAVI HARRINGTON [facility] Modalities Electrical Stimulation Modalities Electrical Stimulation 45789 2005 XAVI HARRINGTON [facility] Physical Therapy Mobilization Joint Physical Therapy Mobilization Joint 51108 2005 XAVI HARRINGTON [facility] Modalities Heat Hot Packs Modalities Heat Hot Packs 35367 2005 XAVI HARRINGTON [facility] Physical Therapy: ___ Se ion Segments, 15 Minutes Each Physical Therapy: ___ Session Segments, 15 Minutes Each 23753 2005 XAVI HARRINGTON [facility] Modalities Electrical Stimulation Modalities Electrical Stimulation 55714 2005 XAVI HARRINGTON [facility] Physical Therapy Mobilization Joint Physical Therapy Mobilization Joint 69282 2005 XAVI HARRINGTON [facility] Modalities Heat Hot Packs Modalities Heat Hot Packs 85559 2005 XAVI HARRINGTON [facility] Modalities Electrical Stimulation Modalities Electrical Stimulation 36482 2005 XAVI HARRINGTON [facility] Physical Therapy: ___ Se ion Segments, 15 Minutes Each Physical Therapy: ___ Session Segments, 15 Minutes Each 05444 2005 XAVI HARRINGTON [facility] Physical Therapy Mobilization Joint Physical Therapy Mobilization Joint 51338 2005 XAVI HARRINGTON [facility] Modalities Heat Hot Packs Modalities Heat Hot Packs 67332 2005 XAVI HARRINGTON [facility] Physical Therapy: ___ Se ion Segments, 15 Minutes Each Physical Therapy: ___ Session Segments, 15 Minutes Each 08100 2005 XAVI HARRINGTON [facility] Modalities Electrical Stimulation Modalities Electrical Stimulation 36046 2005 XAVI HARRINGTON [facility] Modalities Heat Hot Packs Modalities Heat Hot Packs 27515 2005 XAVI HARRINGTON [facility] Physical Therapy: ___ Se ion Segments, 15 Minutes Each Physical Therapy: ___ Session Segments, 15 Minutes Each 15355 2005 DARLING SHI [facility] Install Peripheral Transcutaneous Neurostimulator Install Peripheral Transcutaneous Neurostimulator 53705 2005 DARLING SHI [facility] Modalities Heat Hot Packs Modalities Heat Hot Packs 15028 2005 DARLING SHI [facility] Physical Therapy Mobilization Joint Physical Therapy Mobilization Joint 95070 2005 DARLING SHI [facility] Physical Therapy Service Evaluation Physical Therapy Service Evaluation 48116 2005 DARLING SHI [facility] Typhoid Vaccine Vi Capsular Polysaccharide, For Intramus Use Typhoid Vaccine Vi Capsular Polysaccharide, For Intramus Use 91377 2005 ELIF RINCON [facility] Immunization Administration By Injection, One Vaccine Immunization Administration By Injection, One Vaccine 49825 2005 ELIF RINCON [facility] Immunization Administration By Injection, Each Additional Vaccine 2005 ELIF RINCON Skin Test Anergy tuberculin Skin Test Anergy tuberculin 37019 2005 ELIF RINCON [facility] OPHTHALMOLOGICAL SERVICES: MEDICAL EXAMINATION AND EVALUATION WITH INITIATION OF DIAGNOSTIC AND TREATMENT PROGRAM; INTERMEDIATE, NEW PATIENT 2005 [facility] RANGE OF MOTION MEASUREMENTS AND REPORT (SEPARATE PROCEDURE); EACH EXTREMITY (EXCLUDING HAND) OR EACH TRUNK SECTION (SPINE) 2008 [facility] COORDINATED CARE FEE, MAINTENANCE RATE 2008 [facility] COORDINATED CARE FEE, MAINTENANCE RATE 2008 [facility] COORDINATED CARE FEE, MAINTENANCE RATE 2008 [facility] INDIVIDUAL PSYCHOTHERAPY, INSIGHT ORIENTED, BEHAVIOR MODIFYING AND/OR SUPPORTIVE, IN AN OFFICE OR OUTPATIENT FACILITY, APPROXIMATELY 20 TO 30 MINUTES [id number] WITH THE PATIENT 2008 [facility] COORDINATED CARE FEE, MAINTENANCE RATE 2008 [facility] MEDICAL NUTRITION THERAPY; GROUP (2 OR MORE INDIVIDUAL(S)), EACH 30 MINUTES 2008 [facility] COORDINATED CARE FEE, MAINTENANCE RATE 2008 [facility] COORDINATED CARE FEE, MAINTENANCE RATE 2008 [facility] FITTING OF SPECTACLES, EXCEPT FOR APHAKIA; MONOFOCAL 2008 [facility] RANGE OF MOTION MEASUREMENTS AND REPORT (SEPARATE PROCEDURE); EACH EXTREMITY (EXCLUDING HAND) OR EACH TRUNK SECTION (SPINE) 2008 [facility] RANGE OF MOTION MEASUREMENTS AND REPORT (SEPARATE PROCEDURE); EACH EXTREMITY (EXCLUDING HAND) OR EACH TRUNK SECTION (SPINE) 2008 [facility] COORDINATED CARE FEE, MAINTENANCE RATE 2008 [facility] PURE TONE AUDIOMETRY (THRESHOLD); AIR ONLY 2008 [facility] INTERACTIVE GROUP PSYCHOTHERAPY 2007 [facility] TISSUE EXAMINATION BY DAIN SLIDE OF SAMPLES FROM SKIN, HAIR, OR NAILS FOR FUNGI OR ECTOPARASITE OVA OR MITES (EG, SCABIES) 2007 [facility] COORDINATED CARE FEE, MAINTENANCE RATE 2007 [facility] PHYSICAL THERAPY RE-EVALUATION 2007 [facility] NEUROPSYCHOLOG TST (EG,IVIS-REITAN NEUROPSYCHOLOG MADONNA,YANNA MEM SCALES & WISC CARD SORT TST),/HR OF PSYCHOLOGIST/PHYS TIME,BOTH [id number] ADMIN TST TO PAT & TIME INTERP TEST RES & PREP RPT 2007 [facility] NEUROPSYCHOLOG TST (EG,IVIS-REITAN NEUROPSYCHOLOG MADONNA,YANNA MEM SCALES & WISC CARD SORT TST),/HR OF PSYCHOLOGIST/PHYS TIME,BOTH [id number] ADMIN TST TO PAT & TIME INTERP TEST RES & PREP RPT 2007 [facility] THERAPEUTIC PROCEDURE(S), GROUP (2 OR MORE INDIVIDUALS) 2007 [facility] NEUROPSYCHOLOG TST (EG,IVIS-REITAN NEUROPSYCHOLOG MADONNA,YANNA MEM SCALES & WISC CARD SORT TST),/HR OF PSYCHOLOGIST/PHYS TIME,BOTH [id number] ADMIN TST TO PAT & TIME INTERP TEST RES & PREP RPT 2007 [facility] THERAPEUTIC PROCEDURE, 1 OR MORE AREAS, EACH 15 MINUTES; THERAPEUTIC EXERCISES TO DEVELOP STRENGTH AND ENDURANCE, RANGE OF MOTION AND FLEXIBILITY 2007 [facility] THERAPEUTIC PROCEDURE, 1 OR MORE AREAS, EACH 15 MINUTES; THERAPEUTIC EXERCISES TO DEVELOP STRENGTH AND ENDURANCE, RANGE OF MOTION AND FLEXIBILITY 2007 [facility] THERAPEUTIC PROCEDURE, 1 OR MORE AREAS, EACH 15 MINUTES; THERAPEUTIC EXERCISES TO DEVELOP STRENGTH AND ENDURANCE, RANGE OF MOTION AND FLEXIBILITY 2007 [facility] INJECTION(S); SINGLE OR MULTIPLE TRIGGER POINT(S), 1 OR 2 MUSCLE(S) 2007 [facility] THERAPEUTIC PROCEDURE, 1 OR MORE AREAS, EACH 15 MINUTES; THERAPEUTIC EXERCISES TO DEVELOP STRENGTH AND ENDURANCE, RANGE OF MOTION AND FLEXIBILITY 2007 [facility] APPLICATION OF A MODALITY TO 1 OR MORE AREAS; HOT OR COLD PACKS 2007 [facility] APPLICATION OF A MODALITY TO 1 OR MORE AREAS; HOT OR COLD PACKS 2007 [facility] SELF-CARE/HOME MANAGMENT TRAIN (EG,ACT OF DAILY LIVING (ADL) &COMPENSAT TRAIN,MEAL PREPARATION,SAFETY PROCS,AND INSTRUCT IN USE OF ASST TECHNOLOGY DEV/ADPT EQUIP) DIR ONE-ON-ONE CONT,EA MINUTES 2007 [facility] ACUPUNCTURE, 1/MORE NEEDLES; WO ELECTRICAL STIMULATION, EA ADDITIONAL 15 MINUTES, PERSONAL ONE-ON-ONE CONTACT W THE PATIENT, W RE-INSERTION, NEEDLE(S) (LIST SEPARATELY ADDITION CODE, 1 PROCEDURE) 2007 [facility] THERAPEUTIC PROCEDURE,1 OR MORE AREAS,EACH 15 MINUTES;NEUROMUSCULAR REEDUCATION OF MOVEMENT,BALANCE,COORDI NATION,KINESTHETIC SENSE,POSTURE,AND/OR PROPRIOCEPTION FOR SITTING AND/OR STANDING ACTIVITIES 2007 [facility] THERAPEUTIC PROCEDURE,1 OR MORE AREAS,EACH 15 MINUTES;NEUROMUSCULAR REEDUCATION OF MOVEMENT,BALANCE,COORDI NATION,KINESTHETIC SENSE,POSTURE,AND/OR PROPRIOCEPTION FOR SITTING AND/OR STANDING ACTIVITIES 2007 [facility] THERAPEUTIC PROCEDURE,1 OR MORE AREAS,EACH 15 MINUTES;NEUROMUSCULAR REEDUCATION OF MOVEMENT,BALANCE,COORDI NATION,KINESTHETIC SENSE,POSTURE,AND/OR PROPRIOCEPTION FOR SITTING AND/OR STANDING ACTIVITIES 2007 [facility] PSYCHIATRIC DIAGNOSTIC INTERVIEW EXAMINATION 2007 [facility] HEALTH&BEHAV ASSESSMENT (EG, HEALTH-FOC CLINICAL INTERVIEW, BEHAVIORAL OBSERVATIONS, PSYCHOPHYSICOLOGICAL MONITOR, HEALTH-ORIENT QUESTIONNAIRES), EA 15 MIN [id number] W THE PATIENT; INIT ASSESSMENT 2007 [facility] RANGE OF MOTION MEASUREMENTS AND REPORT (SEPARATE PROCEDURE); EACH EXTREMITY (EXCLUDING HAND) OR EACH TRUNK SECTION (SPINE) 2007 [facility] INTERACTIVE GROUP PSYCHOTHERAPY 2007 [facility] EDUCATIONAL SUPPLIES, SUCH BOOKS, TAPES, AND PAMPHLETS, FOR THE PATIENT'S EDUCATION AT COST TO PHYSICIAN OR OTHER QUALIFIED HEALTH TEMPLATE INSPECTOR 2007 [facility] MEDICAL NUTRITION THERAPY; GROUP (2 OR MORE INDIVIDUAL(S)), EACH 30 MINUTES 2007 [facility] COLOR VISION EXAMINATION, EXTENDED, EG, ANOMALOSCOPE OR EQUIVALENT 2006 [facility] PURE TONE AUDIOMETRY (THRESHOLD); AIR ONLY 2006 [facility] CARDIOVASCULAR STRESS TEST USING MAXIMAL OR SUBMAXIMAL TREADMILL OR BICYCLE EXERCISE,CONTINUOUS ELECTROCARDIOGRAPHIC MONITORING,AND/OR PHARMACOLOGICAL STRESS;W SUPERVISION,INTERPRETAT ION AND REPORT 2006 [facility] INJECTION(S); SINGLE OR MULTIPLE TRIGGER POINT(S), 1 OR 2 MUSCLE(S) 2006 [facility] APPLICATION OF A MODALITY TO 1 OR MORE AREAS; HOT OR COLD PACKS 2006 [facility] THERAPEUTIC PROCEDURE, 1 OR MORE AREAS, EACH 15 MINUTES; THERAPEUTIC EXERCISES TO DEVELOP STRENGTH AND ENDURANCE, RANGE OF MOTION AND FLEXIBILITY 2006 [facility] INJECTION(S); SINGLE OR MULTIPLE TRIGGER POINT(S), 1 OR 2 MUSCLE(S) 2006 [facility] DETERMINATION OF REFRACTIVE STATE 2006 [facility] OSTEOPATHIC MANIPULATIVE TREATMENT (OMT); 1-2 BODY REGIONS INVOLVED 2006 [facility] PHYSICAL THERAPY RE-EVALUATION 2006 [facility] DETERMINATION OF REFRACTIVE STATE 2006 [facility] APPLICATION OF A MODALITY TO 1 OR MORE AREAS; ELECTRICAL STIMULATION (MANUAL), EACH 15 MINUTES 2005 [facility] THERAPEUTIC PROCEDURE, 1 OR MORE AREAS, EACH 15 MINUTES; THERAPEUTIC EXERCISES TO DEVELOP STRENGTH AND ENDURANCE, RANGE OF MOTION AND FLEXIBILITY 2005 [facility] APPLICATION OF A MODALITY TO 1 OR MORE AREAS; HOT OR COLD PACKS 2005 [facility] THERAPEUTIC PROCEDURE, 1 OR MORE AREAS, EACH 15 MINUTES; THERAPEUTIC EXERCISES TO DEVELOP STRENGTH AND ENDURANCE, RANGE OF MOTION AND FLEXIBILITY 2005 [facility] APPLICATION OF SURFACE (TRANSCUTANEOUS) NEUROSTIMULATOR (EG, TENS UNIT) 2005 [facility] TYPHOID VACCINE, CAPSULAR POLYSACCHARIDE (VICPS), FOR INTRAMUSCULAR USE 2005 [facility] Social History Combined list of available smoking, tobacco, and other social history from [facility] and [facility] facilities. Social History Type Response Date Comment [facility] e Tobacco smoking status [facility] VA-TOBACCO NEVER USED 04/16/20 [facility] History of tobacco use VA-TOBACCO NEVER USED 12/11/2018 [facility] History of tobacco use LIFETIME NON-SMOKER 11/27/2012 [facility] History of tobacco use LIFETIME NON-SMOKER 10/11/2011 [facility] History of tobacco use LIFETIME NON-SMOKER 11/07/2010 [facility] History of tobacco use LIFETIME NON-SMOKER 08/01/2002 [facility] This section is an empty social history section. [facility]
--- OUTSIDE RECORDS SUMMARY | 2024-04-19 06:52 | XMS_ITS | Encounter Summary ---
Author Name [facility] [facility] [place] Address [address] [place] [address] Care Team Providers Care Truck Rental Clerk Name Role Phone THEE ORTEGA Primary Care Provider Unavailab JEFFREY Mejia Unavailable Unavailable ERIK HOUSE Primary Care Provider THIERRY Gonsalez Unavailable Unavailable Selected Encounter This section includes the information on record at [place] for the Encounter. Date/Time Encounter Type Encounter Description Reason Pro vider Source Apr 15, 2024 12:26 PM Outpatient Encounter PRIMARY CARE/MEDICINE I[facility] Encounter Template Text not used by [facility] Encounter Notes: All associated encounter notes This section contains the clinical notes associated to the Encounter. Date/Time Encounter Note(s) Provider Source Apr 15, 2024 12:26 PM REPORT OF CONTACT: LOCAL TITLE: APPOINTMENT SCHEDULING NOTE STANDARD TITLE: REPORT OF CONTACT DATE OF NOTE: APR 15, 2024@12:26 ENTRY DATE: APR 15, 2024@12:26:35 AUTHOR: GUS PINEDA EXP COSIGNER: URGENCY: STATUS: COMPLETED Attempted to schedule NEW PT APPT Left message on voice mail to call back to this number [phone] If [facility] calls back, schedule appt for: PLEASE PUT IN MESSAGE BILLIARD PARLOR MANAGER: NEEDS NEW PT 60 MINS APPT W/ ANY AVAIL PACT/APACT PCP ACCEPTING NEW PTS /es/ GUS AREVALO Signed: 04/15/2024 12:27 GUS PINEDA [facility]
--- OUTSIDE RECORDS SUMMARY | 2024-04-19 06:52 | XMS_ITS | Encounter Summary ---
Author Name [facility] [place] [facility] [place] Address [address] [place] [id number] Care Team Providers Care Sporting Goods Sales Associate Name Role Phone THEE ORTEGA Primary Care Provider UnavailJEFFREY Bishop Unavailable Unavailable ERIK HOUSE Primary Care Provider THIERRY Gonsalez Unavailable Unavailable Selected Encounter This section includes the information on record at [place] for the Encounter. Date/Time Encounter Type Encounter Description Reason Provider Source Apr 15, 2024 08:09 AM Outpatient Encounter TELEPHONE TRIAGE NEFTALI VANESSA I[facility] Encounter Template Text not used by [facility] Encounter Notes: All associated encounter notes This section contains the clinical notes associated to the Encounter. Date/Time Encounter Note(s) Provider Source Apr 15, 2024 08:09 AM RN PROGRESS NOTE: LOCAL TITLE: CCC: CLINICAL TRIAGE STANDARD TITLE: RN PROGRESS NOTE DATE OF NOTE: APR 15, 2024@08:09:06 ENTRY DATE: APR 15, 2024@08:09:06 AUTHOR: NEFTALI VANESSA EXP COSIGNER: URGENCY: STATUS: COMPLETED Patient Demographics Patient Name: MELANIE DOUGLASS Patient Primary Address: [place] [address] [address] Patient Primary Phone: [phone] Patient : 1975 Patient Age: 48 Caller/Recipient Relation to Patient: Self Emergency Contact: XAVI SANTIAGO Triage Summary Chief Complaint: Shortness Of Breath System WHEN: Within 3 Days Nurse's Recommendation / WHEN: Within 3 Days System WHERE: Clinic Nurse's Recommendation / WHERE: ED [facility] WHEN[facility]WHERE modifier reason: Other Other - Modifiers: vet not established yet Nursing Plan and Disposition Referred patient to higher level of care Instructed to go to Emergency Room (ER) Nurse Summary Nurse Summary: PATIENT CONCERN/DURATION/ONSET: Vet c/o intermittent SOB for a month but this morning it was worse. States he felt a vapor smell (e-cig smell) in the house today that caused him to have SOB; states it's a reoccuring thing for the last month. Nonproductive cough. Denies wheezing. Vet speaking in full sentences; no acute respiratory distress noted. States today the SOB lingered the longest. States the SOB caused his heart rate to be faster than normal and was nauseous when he smelled the vapor. Denies: fever/chills, CP, leg pain, calf pain. WHAT HAS PATIENT TRIED TO TREAT THE SYMPTOMS: Breathed better when he stepped outside. Took cough medicine and it did not help. HISTORY/PREVIOUS TREATMENT: None. WHAT IS PATIENT GOAL FOR THE CALL: Advice. Establish care. Was Care Now considered (TELE or VVC)? No, not eligible. ROLL TENDER DISPOSITION: Recommended triage is >24 hours secondary to intermittent SOB x 1 month, episode worsened today, currently no acute respiratory distress. Vet is not established and advised to be seen at the [facility] ER. Vet requests to get established at [facility]. Alerted New Patient MPLS through Message Sole Assessor. Vet agreeable and will go to [place] ER and expect a call back from [place] in a couple days to schedule PCP appointment. Best contact for is [phone] (Verified). This note was created by a [address] wire tinner. Please do not alert this nurse by adding as a signer for future communications. Alerts are not monitored by this user, please reach out to [facility] instead if indicated. Clinical Contact Center Codes Clinic/Location: V23 [facility] PHONE CCC RN Decision Support System Output: Triage Complete Triage Date: 04/15/2024, 08:07 AM Triage Note: Decision Support Tool Used: [facility] Phone Triage 15 Apr 2024 12:44:16 +0000 [facility] Demographics 48 y/o Male Results CC: Shortness Of Breath Software suggested: Within 3 Days Software suggested follow-up location: Clinic, consider virtual care Values and Measures Duration of CC: 1 Days Alerts 1) Upgrade to TRI 4 if cystic fibrosis, sickle cell, dialysis, asplenia, or daily corticosteroids is present. Positive Responses HPI: cough, new or worsening HPI: dyspnea on exertion, worse than usual during normal activities HPI: dyspnea, episodic, duration longer than 2 weeks VS: respiratory rate not taken VS: temperature not taken Negative Responses Denies: HPI: arm pain, with dyspnea Denies: HPI: chest pain, new or worsening Denies: HPI: chest pain, pleuritic Denies: HPI: confined passenger travel, duration longer than 6 hours, within past 2 weeks Denies: HPI: cough, purulent sputum Denies: HPI: diaphoresis, with dyspnea Denies: HPI: dyspnea, moderate to severe Denies: HPI: dyspnea, sudden onset Denies: HPI: dyspnea, worsening Denies: HPI: fever, subjective Denies: HPI: hemoptysis Denies: HPI: high altitude exposure over 6,000 feet Denies: HPI: jaw pain, with dyspnea Denies: HPI: leg pain, worsening Denies: HPI: leg swelling, unilateral Denies: HPI: lightheadedness, with dyspnea Denies: HPI: melena Denies: HPI: mental status change, confusion Denies: HPI: mental status change, lethargy Denies: HPI: myalgias Denies: HPI: nausea or vomiting, with dyspnea Denies: HPI: nonambulatory, confined to bed or wheelchair, for more than 4 days Denies: HPI: syncope, with dyspnea Denies: HPI: weakness, fatigue, more than usual Denies: HPI: weakness, with dyspnea Denies: HPI: wheezing, new or worsening Denies: MEDS: chemotherapy Denies: MEDS: home oxygen Denies: PMH: angina Denies: PMH: CHF Denies: PMH: diabetes Denies: PMH: DVT Denies: PMH: heart attack Denies: PMH: HIV positive Denies: PMH: kidney failure, receiving dialysis Denies: PMH: pulmonary embolism Denies: PMH: stroke or TIA Denies: PSH: organ transplant Denies: PSH: spleen removed Denies: PSH: surgery, trunk or abdomen, within past month IMPORTANT: This note was created by [facility] Clinical Contact Center staff. Please do not alert the staff member by adding them as a signer for future communications. Alerts are not monitored by this user. /stephanie/ NEFTALI VANESSA RN, BSN VISN23 [facility] Signed: 04/15/2024 08:09 NEFTALI VANESSA [facility]
[2024-04-19 07:52] LABS: PCR FLU A Negative PCR FLU A (Negative); PCR FLU B Negative PCR FLU B (Negative); PCR RSV Negative PCR RSV (Negative); SARS PCR* Negative SARS-CoV-2 (Negative)
== END 2024-04-19 08:44 | disposition home or self-care (01) ==
PROVIDERS: Emergency Provider Family Medicine
DX: R07.0 Pain in throat (principal)
CPT/HCPCS: 87631; 93005; 99283